=== PATIENT | female | born 1980 | race Caucasian/White ===

== ENCOUNTER 2020-05-12 12:50 | Emergency (ER) | payer MEDICAID, SELFPAY ==
--- NOTE | ~2020-05-12 | XR_ITS ---
EXAMINATION: XR FOOT, LEFT CLINICAL INFORMATION: Pain COMPARISON: None TECHNIQUE: AP, lateral, and oblique views of the left foot. FINDINGS: No fracture or malalignment. Joint spaces are maintained. Mild dorsal soft tissue swelling at the region of the metatarsophalangeal joints. No underlying osseous abnormality. No ankle joint effusion. XR/XR foot LT min 3V IMPRESSION: Mild dorsal soft tissue swelling at the level of the tarsometatarsal articulations. No associated osseous abnormality.
[2020-05-12 12:58] VITALS: BP 130/87; PULSE 80; RESP 18; TEMP 37.2; O2SAT 98; BMI 30.7
--- NOTE | 2020-05-12 14:16 | ED.LOWEXIN ---
HPI - Extremity Injury (Lower) General Chief Complaint: Extremity Problem Stated Complaint: LUMP ON R FOOT Time Seen by Provider: 05/12/20 13:22 Source: patient Mode of arrival: ambulatory Limitations: no limitations History of Present Illness HPI Narrative: Pain to the dorsum of the right foot on and off for the past 2 months onset after wearing work boots with stiff top. States she will wear snow shoes and this will make it worse. States feels like the dorsum of the foot feels slightly swollen. MD complaint: foot injury Onset (ago): month(s) Injury: Right: foot Place: home Severity: mild Relieving factors: immobilization Exacerbating factors: palpation and other (Worse when she wears no bleeds) Other symptoms: none Related Data Previous Rx's Medication Instructions Recorded ibuprofen 800 mg PO Q8H PRN #30 tab 05/12/20 Allergies Allergy/AdvReac Type Severity Reaction Status Date / Time penicillin V Allergy Unknown Verified 04/25/19 00:00 varicella virus vaccine live Allergy Unknown ITCHING,FABIAN Unverified 11/23/19 19:08 [VARICELLA VIRUS VACCINE SEA,HEADACH LIVE] E Review of Systems Review of Systems: Constitutional: No Weight loss, No Fever, No Chills, No Night Sweats, No Fatigue, No Malaise ENT/Mouth: No Hearing loss, No Ear Pain, No Nasal Congestion, No Sinus Pain, No Hoarseness, No sore throat, No Rhinorrhea, No Swallowing Difficulty Eyes: Negative Cardiovascular: Negative Respiratory: Negative Gastrointestinal: Negative Genitourinary: Negative Musculoskeletal: No joint pain, No Myalgias, No Joint Swelling , as are per HPI Skin: No Skin Lesions, No rash Neuro: No Weakness, No Numbness, No Paresthesias, No Loss of Consciousness, No Dizziness, No Headache Psych: Negative Heme/Lymph/Endocrine: Negative Yes all other systems are reviewed and are negative [facility] Past Medical History Medical History Anxiety Asthma Social History Social History Advance Directives: No Advance Directives Information Provided: No Physical Exam Vital Signs: Vital Signs: Last Vital Signs Temp 99.0 F 05/12/20 12:58 Pulse 80 05/12/20 12:58 Resp 18 05/12/20 12:58 BP 130/87 05/12/20 12:58 Pulse Ox 98 05/12/20 12:58 Body Mass Index 30.7 Reviewed Const: General: healthy appearing, comfortable and no acute distress Resp: Auscultation: clear to auscultation bilaterally Cardio: Rhythm: regular rhythm Heart sounds: S1 normal heart sound present and S2 normal heart sound present Skin: General skin exam: no rashes or lesions noted Extrem: Ankle/foot/toe images: 1. Area of pain Course Course Course Narrative: Pain at the proximal aspect of the flexor tendon and dorsum of the foot likely friction related. X-ray with the acute osseous injury. Exam without suggestion of infectious pathology. Jon wrap, NSAIDs and footwear modification and follow-up with orthopedics. Discharge Plan Discharge Clinical Impression: Foot tendinitis Patient Disposition: Home, Self-Care Instructions: Tendinitis (ED) Additional Instructions: Cool compresses Ice, elevate Jon wrap for comfort Nonsteroidal anti-inflammatory (ibuprofen) as prescribed Supportive footwear as discussed Prescriptions: New ibuprofen 800 mg tablet 800 mg PO Q8H PRN (Reason: pain) Qty: 30 RF: 0 Referrals: Jadiel Blake MD [Primary Care Provider] - 1 week Interventions: ED Discharge Assessment Last Done: 05/12/20 14:33 Discharge Date/Time: 05/12/20 14:33
== END 2020-05-12 14:33 | disposition home or self-care (01) ==
PROVIDERS: Emergency Provider Emergency Medicine; PCP Internal Medicine Geriatric Medicine
DX: M77.51 Other enthesopathy of right foot and ankle (principal); Z79.899 Other long term (current) drug therapy
CPT/HCPCS: 73630; 99283

== ENCOUNTER 2020-06-24 14:39 | Emergency (ER) | payer MEDICAID, SELFPAY ==
[2020-06-24 15:09] VITALS: BP 151/93; PULSE 80; RESP 17; TEMP 36.6; O2SAT 98; BMI 29.9
--- NOTE | 2020-06-24 15:46 | ED.DENTAL ---
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 Patient tells me she has severe anxiety with dentist as well as procedures. No fevers or chills Related Data Previous Rx's Medication Instructions Recorded ibuprofen 800 mg PO Q8H PRN #30 tab 05/12/20 clindamycin HCl 150 mg PO QID 7 Days #28 cap 06/24/20 ibuprofen 800 mg PO Q8H PRN #20 tab 06/24/20 oxycodone 5 mg PO Q6H PRN #10 tab 06/24/20 Allergies Allergy/AdvReac Type Severity Reaction Status Date / Time penicillin V Allergy Unknown Unknown Verified 06/24/20 15:53 varicella virus vaccine live Allergy Unknown ITCHING,FABIAN Verified 06/24/20 15:53 [VARICELLA VIRUS VACCINE SEA,HEADACH LIVE] E Review of Systems Review of Systems: Yes all other systems are reviewed and are negative Constitutional: Constitutional: Reports no additional constitutional complaints, Denies body ache(s), Denies chills, Denies fever(s), Denies headache(s) and Denies weakness Eyes: Eyes: Reports no additional eye complaints and Denies change in vision ENT: Reports system reviewed and no additional complaints, except as documented, Denies dizziness, Reports facial pain, Denies headache(s), Denies nasal congestion, Denies nasal discharge and Denies neck pain Comments: Dental pain Cardiovascular: Cardiovascular: Reports no additional cardiovascular complaints, Denies chest pain, Denies leg edema and Denies dyspnea Respiratory: Respiratory: Reports no additional respiratory complaints, Denies cough and Denies dyspnea Gastrointestinal: Gastrointestinal: Reports no additional gastrointestinal complaints, Denies abdominal pain, Denies diarrhea, Denies nausea and Denies vomiting Genitourinary: Genitourinary: Reports no additional female genitourinary complaints and Denies urinary incontinence Musculoskeletal: Musculoskeletal: Reports no additional musculoskeletal complaints, Denies back pain, Denies arthralgias, Denies joint swelling, Denies neck pain, Denies numbness and Denies tingling Integumentary/Breasts: Skin/Breast: Reports system reviewed and no additional complaints, except as docu and Denies rash Neurologic: Reports system reviewed and no additional complaints, except as documented, Denies Abnormal speech present, Denies dizziness, Denies headache(s), Denies numbness, Denies tingling and Denies weakness PMFSH Past Medical History Attestation statement: The following information was validated with the patient. Source: old records reviewed and nursing notes reviewed Medical History Anxiety Asthma Social History Social History Advance Directives: No Advance Directives Information Provided: Yes Physical Exam Vital Signs: Vital Signs: Last Vital Signs Temp 98 F 06/24/20 15:09 Pulse 80 06/24/20 15:09 Resp 17 06/24/20 15:09 BP 151/93 H 06/24/20 15:09 Pulse Ox 98 06/24/20 15:09 Body Mass Index 29.9 Const: General: cooperative, healthy appearing, comfortable and no acute distress Orientation/consciousness: patient oriented x3 Limitations: no limitations HENMT: Other: No trismus Head: Yes normal to inspection Ears: hearing grossly normal bilaterally General nose exam: Normal external nose present Face and sinus: Yes normal facial exam Face images: 1. Swelling. No erythema or warmth Mouth: Normal oral and palatal mucosa present Teeth image: 1. Extensive caries. Erythema swelling and fluctuance at the gum line noted Throat: Yes posterior oropharynx normal Eyes: General: appearance normal, both eyes and all related structures Pupils: Equal, round and reactive pupils present Neck: Neck: Yes normal visual inspection Chest: Chest palpation & inspection: normal inspection of the chest Resp: Effort & Inspection: normal respiratory effort Auscultation: clear to auscultation bilaterally Cardio: Rate: regular rate Rhythm: regular rhythm Peripheral pulses: Peripheral pulses 2+ throughout GI: Inspection: Yes normal to inspection Palpation (GI): Soft to palpation and nontender Auscultation: normal bowel sounds Back/Spine/Pelvis: Thoracic/Lumbar Spine: thoracic and lumbar spine normal to inspection Skin: General skin exam: no rashes or lesions noted Neuro: General: patient oriented x3, no focal motor deficits and normal sensation to monofilament Cranial nerves: Yes Equal, round and reactive pupils present Cognition (Neuro): normal cognition Speech: No Abnormal speech present Gait exam (Neuro): Normal gait present Motor exam (neuro): 5/5 motor strength present throughout Extrem: General: Yes normal to inspection Course Course Course Narrative: 40-year-old female here with left dental pain and facial swelling. No fevers, chills or trismus. Has extensive dental caries with local abscess on exam. Will need I and D. due to severe anxiety will give dose of Ativan. 1814-see procedure note. Patient tolerated well. Will discharge with course of antibiotics and analgesia. Recommended follow-up with dentist. Reviewed worrisome signs and symptoms such as difficulty opening the mouth, increasing swelling. Comfortable discharge home. Procedures Abscess I/D Site: other (Dental) Side (if applicable): left Sedation/analgesia: other (Ativan 2 mg p.o.) Local Anesthetic: lidocaine 2% Amount of anesthesia used (mL): 1 Technique: needle aspiration and incised with blade Sent for culture/gram staining?: No Irrigation: No Packing used?: none Discharge Plan Discharge Clinical Impression: Dental abscess Patient Disposition: Home, Self-Care Instructions: Dental Abscess (ED) Additional Instructions: Motrin or Tylenol for pain Follow-up with dentist Salt water gargle Prescriptions: New clindamycin HCl 150 mg capsule 150 mg PO QID 7 Days Qty: 28 RF: 0 ibuprofen 800 mg tablet 800 mg PO Q8H PRN (Reason: pain) Qty: 20 RF: 0 oxycodone 5 mg tablet 5 mg PO Q6H PRN (Reason: pain) Qty: 10 RF: 0 No Action ibuprofen 800 mg tablet 800 mg PO Q8H PRN (Reason: pain) Qty: 30 RF: 0 Referrals: Jadiel Blake MD [Primary Care Provider] - 2 days Stand Alone Forms: Work/School Release Interventions: ED Discharge Assessment Last Done: 06/24/20 17:40 Discharge Date/Time: 06/24/20 17:41 Print Language: Lao
[2020-06-24] MEDS: LORazepam 1 MG TABLET 2 MG PO (16:04)
[2020-06-24] MEDS: Lidocaine HCl 2 % MPF 5 ML VIAL SUBCUT (16:05)
== END 2020-06-24 17:41 | disposition home or self-care (01) ==
PROVIDERS: Emergency Provider Emergency Medicine; PCP Internal Medicine Geriatric Medicine
DX: K04.7 Periapical abscess without sinus (principal); K08.89 Other specified disorders of teeth and supporting structures; F41.9 Anxiety disorder, unspecified
CPT/HCPCS: 41800; 99284

== ENCOUNTER 2020-07-16 16:22 | Outpatient (REF) | payer MEDICAID, SELFPAY ==
--- NOTE | ~2020-07-16 | US_ITS ---
EXAMINATION: US EXTREMITY NONVASCULAR, LEFT CLINICAL INFORMATION: Mass dorsal left foot. COMPARISON: None TECHNIQUE: Cid-scale and color imaging of the soft tissues of the left foot using a linear transducer. FINDINGS: Mass corresponds to a 2.3 x 1.3 x 0.7 cm simple-appearing cyst. This may represent a ganglion. US/US extremity nonvascular IMPRESSION: Palpable abnormality corresponds to a 2.3 x 0.7 x 1.3 cm simple cyst. This probably represents a ganglion.
== END 2020-07-16 16:23 | disposition home or self-care (01) ==
LOC: HO.US 16:22
PROVIDERS: Visit Provider Nurse Practitioner Primary Care
DX: R22.9 Localized swelling, mass and lump, unspecified (principal)
CPT/HCPCS: 76882

== ENCOUNTER 2020-08-09 21:37 | Emergency (ER) | payer MEDICAID, SELFPAY ==
--- NOTE | ~2020-08-09 | CT_ITS ---
EXAMINATION: CT SOFT TISSUE NECK WITH CONTRAST CLINICAL INFORMATION: Facial swelling COMPARISON: None TECHNIQUE: Following the intravenous administration of 60 mL of Omnipaque 350 intravenous contrast, helical imaging was performed in the axial plane with generation of coronal and sagittal reformatted images. This CT examination was performed using dose optimization techniques as appropriate, variously including the following: *Automated exposure control *Adjustment of mA and/or kV according to patient size (this includes techniques or standardized protocols for targeted exams where dose is matched to indication/reason for exam; i.e. extremities or head) *Use of iterative reconstruction technique DLP: 560 mGy-cm FINDINGS: There is left-sided facial swelling lateral to the maxilla. There are adjacent periapical lucencies of the first maxillary molar and adjacent premolar, suspicious for odontogenic abscess with cortical erosion laterally. Edema lateral to the maxilla extends inferiorly lateral to the left mandible, and there is a thin region of fluid attenuation suggesting on image 140/356 measuring approximately 1.9 x 0.3 cm which is concerning for developing small abscess collection. Few mildly prominent left submandibular lymph nodes are favored to be reactive in this setting. The parotid glands are homogeneous in attenuation. The submandibular glands are normal. The laryngeal structures are normal. The parapharyngeal fat is preserved. The carotid sheath vasculature opacify normally. No retropharyngeal fluid collection is seen. Subcentimeter right thyroid lobe nodule is noted. The superior mediastinum is unremarkable. The lung apices are clear. There is mucosal thickening of the maxillary sinuses inferiorly. The mastoid air cells are well-aerated. The temporomandibular joints are normal. No osseous abnormalities are seen. The imaged portions of the brain parenchyma are unremarkable. CT/CT soft tissue neck w con IMPRESSION: Left-sided facial swelling lateral to the maxilla, with adjacent periapical lucencies of the first maxillary molar and adjacent premolar suspicious for odontogenic abscess with cortical erosion laterally. Edema extends inferiorly lateral to the left mandible, and there is a thin region of fluid attenuation measuring approximately 1.9 x 0.3 cm concerning for developing small abscess collection.
[2020-08-09 22:59] VITALS: BP 138/87; PULSE 92; RESP 18; TEMP 36.7; O2SAT 100; BMI 30.7
[2020-08-10] MEDS: Ketorolac Tromethamine 15 MG/ML VIAL IVPUSH (01:39)
[2020-08-10] MEDS: Clindamycin Phosphate/D5W 600 MG/50 ML PIGGYBACK 100 MG IV (01:40)
--- NOTE | 2020-08-10 01:42 | ED.GENADULT ---
HPI - General Adult General Chief complaint: Dental/Oral <CHIKIS Hutchinson - Last Filed: 08/10/20 02:57> Stated complaint: facial swelling <CHIKIS Hutchinson - Last Filed: 08/10/20 02:57> Time Seen by Provider: 08/10/20 00:54 <CHIKIS Hutchinson - Last Filed: 08/10/20 02:57> Source: patient, RN notes reviewed and old records reviewed <CHIKIS Hutchinson - Last Filed: 08/10/20 02:57> Mode of arrival: ambulatory <CHIKIS Hutchinson - Last Filed: 08/10/20 02:57> Limitations: no limitations <CHIKIS Hutchinson - Last Filed: 08/10/20 02:57> History of Present Illness HPI narrative: 32-year-old female here today complaints of left facial swelling. Patient was treated for the same in the ER on June 1920. Patient had dental abscess drained and was sent home with ibuprofen and clindamycin for 7 days. She was supposed to follow-up with her dentist. Today she presents with extensive left facial swelling redness and warmth. Patient did not take all of her antibiotics. She only took some of them to biotic 6. This morning her swelling was getting worse and she took couple of the antibiotics that was left over. Patient has pretty extensive dental caries in upper and lower molars on bilateral sides. More so on the left upper side. The swelling is so extensive that I am unable to visualize if there is any abscess. Patient denies any fever or chills periods denies any dysphagia, odynophagia. Patient denies any headaches or dizziness, denies any vision changes <CHIKIS Hutchinson - Last Filed: 08/10/20 02:57> Related Data Home medications: Previous Rx's Medication Instructions Recorded ibuprofen 800 mg PO Q8H PRN #30 tab 05/12/20 clindamycin HCl 150 mg PO QID 7 Days #28 cap 06/24/20 ibuprofen 800 mg PO Q8H PRN #20 tab 06/24/20 oxycodone 5 mg PO Q6H PRN #10 tab 06/24/20 clindamycin HCl 300 mg PO Q6H 7 Days #28 cap 08/10/20 <Melissa Newlorrie EVENT ATTENDANT-BC - Last Filed: 08/10/20 02:57> Allergies/adverse reactions: Allergies Allergy/AdvReac Type Severity Reaction Status Date / Time penicillin V Allergy Unknown Unknown Verified 06/24/20 15:53 varicella virus vaccine live Allergy Unknown ITCHING,FABIAN Verified 06/24/20 15:53 [VARICELLA VIRUS VACCINE SEA,HEADACH LIVE] E <Melissa Aroldo Pope EVENT ATTENDANT-BC - Last Filed: 08/10/20 02:57> Review of Systems Constitutional: Constitutional: Reports as per HPI <Melissa Newlorrie EVENT ATTENDANT- - Last Filed: 08/10/20 02:57> Eyes: Eyes: Denies blurry vision, Denies change in vision and Denies diplopia <Melissa Aroldo Toshia, EVENT ATTENDANT- - Last Filed: 08/10/20 02:57> ENT: Reports Normal hearing present, Denies bleeding gums, Denies change in voice, Reports dental pain, Denies dysphagia, Denies vertigo, Denies dizziness, Denies hoarseness, Denies nasal congestion, Denies odynophagia and Reports sore throat <Melissa Aroldo Newlorrie EVENT ATTENDANT- - Last Filed: 08/10/20 02:57> Cardiovascular: Cardiovascular: Reports no additional cardiovascular complaints, Denies chest pain, Denies irregular heart rhythm, Denies leg edema, Denies lightheadedness and Denies dyspnea <Melissa Aroldo Pope EVENT ATTENDANT- - Last Filed: 08/10/20 02:57> Respiratory: Respiratory: Reports no additional respiratory complaints and Denies dyspnea <Melissa Aroldo Toshia, EVENT ATTENDANT-BC - Last Filed: 08/10/20 02:57> Gastrointestinal: Gastrointestinal: Reports no additional gastrointestinal complaints, Denies dysphagia and Denies odynophagia <Melissa Aroldo Pope EVENT ATTENDANT- - Last Filed: 08/10/20 02:57> Musculoskeletal: Musculoskeletal: Reports no additional musculoskeletal complaints <Melissa Aroldo Pope EVENT ATTENDANT-BC - Last Filed: 08/10/20 02:57> Neurologic: Reports system reviewed and no additional complaints, except as documented, Reports Normal hearing present, Denies vertigo and Denies dizziness <CHIKIS Hutchinson - Last Filed: 08/10/20 02:57> Psychiatric: Psychiatric: Reports no additional psychiatric complaints <NAVIN HutchinsonBC - Last Filed: 08/10/20 02:57> PMFSH Past Medical History Medical History: Medical History Anxiety Asthma <CHIKIS Hutchinson - Last Filed: 08/10/20 02:57> Social History Social History: Social History Advance Directives: No Advance Directives Information Provided: No Patient : No <CHIKIS Hutchinson - Last Filed: 08/10/20 02:57> Physical Exam Vital Signs: Vital Signs: Last Vital Signs Temp 98.4 F 08/10/20 01:44 Pulse 83 08/10/20 04:00 Resp 16 08/10/20 04:00 BP 110/65 08/10/20 04:00 Pulse Ox 97 08/10/20 04:00 Body Mass Index 30.7 <CHIKIS Hutchinson - Last Filed: 08/10/20 02:57> Vital Signs: Last Vital Signs Temp 98.4 F 08/10/20 01:44 Pulse 83 08/10/20 04:00 Resp 08/10/20 04:00 BP 110/65 08/10/20 04:00 Pulse Ox 97 08/10/20 04:00 Body Mass Index 30.7 <Kaycee Zacarias MD - Last Filed: 08/10/20 05:16> Const: General: healthy appearing, no acute distress and well developed <CHIKIS Hutchinson - Last Filed: 08/10/20 02:57> Nutritional Appearance: well nourished <CHIKIS Hutchinson - Last Filed: 08/10/20 02:57> Orientation/consciousness: patient oriented x3 <CHIKIS Hutchinson - Last Filed: 08/10/20 02:57> HENMT: Head: Yes normal to inspection, Yes normocephalic and Yes atraumatic <Melissa Pope EVENT ATTENDANT-BC - Last Filed: 08/10/20 02:57> General nose exam: Normal external nose present <Melissa D Toshia, EVENT ATTENDANT-BC - Last Filed: 08/10/20 02:57> Face and sinus: Yes erythema (Left facial) and Yes edema (Left facial) <Melissa Aroldo Newo, EVENT ATTENDANT-BC - Last Filed: 08/10/20 02:57> Neck: Neck: Yes normal visual inspection, Yes full ROM and Yes trachea midline <Melissa Aroldo Newo, EVENT ATTENDANT-BC - Last Filed: 08/10/20 02:57> Thyroid: Thyroid normal <Melissa Aroldo Newo, EVENT ATTENDANT-BC - Last Filed: 08/10/20 02:57> Resp: Auscultation: clear to auscultation bilaterally <Melissa Aroldo Newo, EVENT ATTENDANT-BC - Last Filed: 08/10/20 02:57> Cardio: Rate: regular rate <Melissa Aroldo Pope, EVENT ATTENDANT-BC - Last Filed: 08/10/20 02:57> Rhythm: regular rhythm <Melissa Aroldo Newo, EVENT ATTENDANT-BC - Last Filed: 08/10/20 02:57> GI: Inspection: Yes normal to inspection and No distended <Melissa Aroldo Newo, EVENT ATTENDANT-BC - Last Filed: 08/10/20 02:57> Palpation (GI): No hepatosplenomegaly present <Melissa D Toshia, EVENT ATTENDANT-BC - Last Filed: 08/10/20 02:57> Auscultation: normal bowel sounds <Melissa D Toshia, EVENT ATTENDANT-BC - Last Filed: 08/10/20 02:57> Skin: General skin exam: elasticity normal, turgor normal and dry skin <Melissa D Toshia, EVENT ATTENDANT-BC - Last Filed: 08/10/20 02:57> Neuro: General: patient oriented x3 <Melissa D Toshia, EVENT ATTENDANT-BC - Last Filed: 08/10/20 02:57> Cranial nerves: Yes Normal hearing present <Melissa D Toshia, EVENT ATTENDANT-BC - Last Filed: 08/10/20 02:57> Course Course Course Narrative: 40-year-old female is here today for left facial pain and swelling. Patient was treated for dental caries and abscesses on June 24 was sent home on antibiotics. However she only took couple days worth of antibiotics and then she stopped this morning she started with facial swelling that increased rapidly patient took couple of the antibiotics today however she stops the course after only couple days of treatment. I will send blood cultures start her on Clinamycin IV will do CT scan of the neck. <KAROLINA Hutchinson-BC - Last Filed: 08/10/20 02:57> CT scan reviewed and patient re-evaluated. Patient states she feels somewhat better and has been resting comfortably. She understands the importance of continuing to take the antibiotics as prescribed as well as following up with the dentist on Wednesday morning. She was provided with strict return precautions. <Kaycee Zacarias MD - Last Filed: 08/10/20 05:16> Reevaluation(s) Reevaluation #1: WBCs 11.9, awaiting to go to CT scan report given to Dr. Fisher <KAROLINA Hutchinson-BC - Last Filed: 08/10/20 02:57> Medical Decision Making Lab Data Result diagrams: : 08/10/20 01:38 08/10/20 01:38 <KAROLINA Hutchinson-BC - Last Filed: 08/10/20 02:57> Labs: Lab Results 08/10/20 08/10/20 Range/Units 01:38 01:38 WBC 11.9 H (4.8-10.8) X10*3/uL RBC 4.99 (4.20-5.50) X10*6/uL Hgb 12.0 (12.0-16.0) g/dl Hct 36.6 L (37-47) % MCV 73.3 L (80-98) fL MCH 24.0 L (27.0-33.0) pg MCHC 32.8 (31.0-35.0) g/dl RDW 22.5 H (11.0-16.0) % Plt Count 293 (160-400) X10*3/uL MPV 10.6 (9.4-12.3) fL Immature Gran % (Auto) 0.3 (0.0-0.4) % Neut % (Auto) 72.2 (45-73) % Lymph % (Auto) 17.5 L (20-40) % [place] % (Auto) 8.2 (2-11) % Eos % (Auto) 1.5 (0-4) % Baso % (Auto) 0.3 (0-2) % Lymph # (Auto) 2.1 (1.2-4.9) X10*3/uL [place] # (Auto) 1.0 (0.1-1.2) X10*3/uL Eos # (Auto) 0.2 (0.0-0.4) X10*3/uL Baso # (Auto) 0.0 (0.0-0.2) X10*3/uL Abs Immat Gran (auto) 0.03 (0.00-0.03) X10*3/uL Absolute Neuts (auto) 8.6 H (2.0-8.3) X10*3/uL Absolute Nucleated RBC 0.000 (0.0-0.012) X10*3/uL Nucleated RBC % (auto) 0.0 (0.0-0.2) /100WBC Sodium 138 (135-145) mmol/L Potassium 3.7 (3.3-5.1) mmol/L Chloride 103 (96-108) mmol/L Carbon Dioxide 23 (22-29) mmol/L Anion Gap 16 (12-20) BUN 13 (9-16) mg/dL Creatinine 0.82 (0.5-1.4) mg/dL Estim Creat Clear Calc 98.8 Estimated GFR > 60 Random Glucose 109 (60-115) mg/dL Calcium 9.2 (8.4-10.2) mg/dL <BRENDA HutchinsonP- - Last Filed: 08/10/20 02:57> Lab Results 08/10/20 08/10/20 Range/Units 01:38 01:38 WBC 11.9 H (4.8-10.8) X10*3/uL RBC 4.99 (4.20-5.50) X10*6/uL Hgb 12.0 (12.0-16.0) g/dl Hct 36.6 L (37-47) % MCV 73.3 L (80-98) fL MCH 24.0 L (27.0-33.0) pg MCHC 32.8 (31.0-35.0) g/dl RDW 22.5 H (11.0-16.0) % Plt Count 293 (160-400) X10*3/uL MPV 10.6 (9.4-12.3) fL Immature Gran % (Auto) 0.3 (0.0-0.4) % Neut % (Auto) 72.2 (45-73) % Lymph % (Auto) 17.5 L (20-40) % [place] % (Auto) 8.2 (2-11) % Eos % (Auto) 1.5 (0-4) % Baso % (Auto) 0.3 (0-2) % Lymph # (Auto) 2.1 (1.2-4.9) X10*3/uL [place] # (Auto) 1.0 (0.1-1.2) X10*3/uL Eos # (Auto) 0.2 (0.0-0.4) X10*3/uL Baso # (Auto) 0.0 (0.0-0.2) X10*3/uL Abs Immat Gran (auto) 0.03 (0.00-0.03) X10*3/uL Absolute Neuts (auto) 8.6 H (2.0-8.3) X10*3/uL Absolute Nucleated RBC 0.000 (0.0-0.012) X10*3/uL Nucleated RBC % (auto) 0.0 (0.0-0.2) /100WBC Sodium 138 (135-145) mmol/L Potassium 3.7 (3.3-5.1) mmol/L Chloride 103 (96-108) mmol/L Carbon Dioxide 23 (22-29) mmol/L Anion Gap 16 (12-20) BUN 13 (9-16) mg/dL Creatinine 0.82 (0.5-1.4) mg/dL Estim Creat Clear Calc 98.8 Estimated GFR > 60 Random Glucose 109 (60-115) mg/dL Calcium 9.2 (8.4-10.2) mg/dL <Kaycee Zacarias MD - Last Filed: 08/10/20 05:16> Discharge Plan Discharge Clinical Impression: Abscess, dental <CHIKIS Hutchinson - Last Filed: 08/10/20 02:57> Patient Disposition: Home, Self-Care <CHIKIS Hutchinson - Last Filed: 08/10/20 02:57> Instructions: Dental Abscess (ED) <CHIKIS Hutchinson - Last Filed: 08/10/20 02:57> Additional Instructions: 1. Recomiende el uso de Tylenol / ibuprofeno de venta raciel seg?n sea necesario para controlar el dolor. 2. Utilice compresas tibias y h?medas en la mejilla, de thomas a cuatro veces al d?a. 3. Seguimiento con el dentista el lunes por la ma?jonathan para el tratamiento definitivo. Regrese a la moira de emergencias por cualquier empeoramiento alejandro de kathe s?ntomas. <CHIKIS Hutchinson - Last Filed: 08/10/20 02:57> Prescriptions: New clindamycin HCl 300 mg capsule 300 mg PO Q6H 7 Days Qty: 28 RF: 0 No Action ibuprofen 800 mg tablet 800 mg PO Q8H PRN (Reason: pain) Qty: 30 RF: 0 clindamycin HCl 150 mg capsule 150 mg PO QID 7 Days Qty: 28 RF: 0 ibuprofen 800 mg tablet 800 mg PO Q8H PRN (Reason: pain) Qty: 20 RF: 0 oxycodone 5 mg tablet 5 mg PO Q6H PRN (Reason: pain) Qty: 10 RF: 0 <CHIKIS Hutchinson - Last Filed: 08/10/20 02:57> Referrals: Lou,MD Jadiel [Primary Care Provider] - 2 days <CHIKIS Hutchinson - Last Filed: 08/10/20 02:57> Print Language: Serbian <CHIKIS Hutchinson - Last Filed: 08/10/20 02:57>
[2020-08-10 01:44] VITALS: BP 127/77; PULSE 87; RESP 17; TEMP 36.9; O2SAT 96
[2020-08-10 01:51] LABS: MANUAL DIFF FLAG NO
[2020-08-10 01:53] LABS: Basophils Percent Auto 0.3 % (0-2); Eosinophils Absolute Auto 0.2 X10*3/uL (0.0-0.4); Eosinophils Percent Auto 1.5 % (0-4); Hematocrit 36.6 % (37-47); Imm Gran Abs Auto 0.03 X10*3/uL (0.00-0.03); Imm Gran Pct Auto 0.3 % (0.0-0.4); Lymphocytes Absolute Auto 2.1 X10*3/uL (1.2-4.9); Lymphocytes Percent Auto 17.5 % (20-40); Mean Corpuscular HGB Conc 32.8 g/dl (31.0-35.0); Mean Corpuscular Volume 73.3 fL (80-98); Mean Platelet Volume 10.6 fL (9.4-12.3); Monocytes Percent Auto 8.2 % (2-11); Neutrophils Absolute Auto 8.6 X10*3/uL (2.0-8.3); Neutrophils Percent Auto 72.2 % (45-73); Platelet Count 293 X10*3/uL (160-400); Red Blood Count 4.99 X10*6/uL (4.20-5.50); Red Cell Distribution Width 22.5 % (11.0-16.0); White Blood Count 11.9 X10*3/uL (4.8-10.8)
[2020-08-10 02:13] LABS: Anion Gap 16 (12-20); Blood Urea Nitrogen 13 mg/dL (9-16); Calcium 9.2 mg/dL (8.4-10.2); Carbon Dioxide 23 mmol/L (22-29); Chloride 103 mmol/L (96-108); Creatinine Clr Calc Pharmacy 98.8; Estimated Glomerular Filt Rate > 60; Glucose Random 109 mg/dL (60-115); Potassium 3.7 mmol/L (3.3-5.1); Sodium 138 mmol/L (135-145)
[2020-08-10] MEDS: iohexoL 350 MG/ML 100 ML INFUS..BTL 60 ML IV (02:53)
[2020-08-10 04:00] VITALS: BP 110/65; PULSE 83; RESP 16; O2SAT 97
== END 2020-08-10 05:43 | disposition home or self-care (01) ==
PROVIDERS: Nurse Practitioner Family; Emergency Provider Emergency Medicine; PCP Internal Medicine Geriatric Medicine
DX: K04.7 Periapical abscess without sinus (principal); Z79.899 Other long term (current) drug therapy
CPT/HCPCS: 36415; 70491; 80048; 85025; 87040; 96365; 96375; 99284; J1885; Q9967

== ENCOUNTER 2021-02-18 12:25 | Emergency (ER) | payer MEDICAID, SELFPAY ==
[2021-02-18 13:10] VITALS: BP 135/83; PULSE 80; RESP 18; TEMP 36.2; O2SAT 100; BMI 32.4
== END 2021-02-18 18:53 | disposition left against medical advice (07) ==
LOC: HO.ED 18:50
PROVIDERS: Emergency Provider Emergency Medicine; PCP Internal Medicine Geriatric Medicine
DX: N64.4 Mastodynia (principal)
CPT/HCPCS: 99282

== ENCOUNTER 2021-03-14 12:59 | Outpatient (REF) | payer MEDICAID, SELFPAY ==
--- NOTE | ~2021-03-14 | US_ITS ---
EXAMINATION: US DIAGNOSTIC ULTRASOUND BREAST, RIGHT CLINICAL INFORMATION: Right breast pain. COMPARISON: Mammography of same day. TECHNIQUE: Ultrasound of the breast is performed with real-time norris scale imaging and color Doppler. FINDINGS: There is no focal suspicious finding. There is no solid mass, architectural abnormality, duct ectasia, or edema in the soft tissue planes. Results are discussed with the patient at time of visit. US/US breast RT limited IMPRESSION: No specific ultrasound abnormality to suggest malignancy of the right breast. ASSESSMENT: BI-RADS 1: Negative RECOMMENDATION: Routine annual mammography screening. This patient's information was entered into a reminder system with a target due date for their next mammogram.
--- NOTE | ~2021-03-14 | MM_ITS ---
EXAMINATION: MM DIAGNOSTIC DIGITAL BREAST TOMOSYNTHESIS, BILATERAL CLINICAL INFORMATION: Bilateral breast pain. The lifetime risk of breast cancer based on the Tyrer-Cuzick Model is 7.9%. COMPARISON: Mammography: 09/01/2019 and 08/26/2018. TECHNIQUE: Digital breast tomosynthesis is performed in both the craniocaudal and mediolateral oblique views along with computer-aided detection (CAD). Synthesized 2D images are generated from the tomosynthesis. Targeted bilateral breast ultrasound was also performed and is reported separately. FINDINGS: The breasts are heterogeneously dense, which may obscure small masses (ACR BI-RADS breast composition Category c). There are no significant masses, abnormal calcifications, or other abnormalities. Bilateral targeted breast ultrasound does not demonstrate any abnormal cystic or solid masses. No region of abnormal distal sound-shadowing is appreciated. No edematous change within the parenchyma is noted. Results are discussed with the patient at time of visit. MM/MM tomosynthesis diagnostic BI IMPRESSION: No specific mammographic or ultrasound findings to suggest malignancy. ASSESSMENT: BI-RADS 1: Negative RECOMMENDATION: Routine annual mammography screening. Clinical followup for any palpable abnormalities. This patient's information was entered into a reminder system with a target due date for their next mammogram.
--- NOTE | ~2021-03-14 | US_ITS ---
EXAMINATION: US DIAGNOSTIC ULTRASOUND BREAST, LEFT CLINICAL INFORMATION: Left breast pain. COMPARISON: Mammography of same day. TECHNIQUE: Ultrasound of the breast is performed with real-time norris scale imaging and color Doppler. FINDINGS: There is no focal suspicious finding. There is no solid mass, architectural abnormality, duct ectasia, or edema in the soft tissue planes. Results are discussed with the patient at time of visit. US/US breast LT limited IMPRESSION: No specific left breast ultrasound findings to suggest malignancy. ASSESSMENT: BI-RADS 1: Negative RECOMMENDATION: Routine annual mammography screening. This patient's information was entered into a reminder system with a target due date for their next mammogram.
== END 2021-03-14 13:00 | disposition home or self-care (01) ==
LOC: HO.MAMMO 12:59
PROVIDERS: PCP Internal Medicine Geriatric Medicine; Visit Provider Internal Medicine Geriatric Medicine
DX: N64.4 Mastodynia (principal)
CPT/HCPCS: 76642; 77062; 77066

== ENCOUNTER 2021-08-10 17:26 | Emergency (ER) | payer MEDICAID, SELFPAY ==
--- NOTE | ~2021-08-10 | XR_ITS ---
EXAMINATION: XR SHOULDER, RIGHT CLINICAL INFORMATION: Shoulder pain COMPARISON: None TECHNIQUE: Three views of the right shoulder. FINDINGS: The bones and soft tissues are normal. No fracture. Glenohumeral and acromioclavicular alignment is anatomic with normal joint space. No abnormal soft tissue calcifications. XR/XR shoulder RT min 2V IMPRESSION: Normal right shoulder.
[2021-08-10 17:42] VITALS: BP 127/78; PULSE 86; RESP 20; TEMP 36.6; O2SAT 98; BMI 32.4
--- NOTE | 2021-08-10 22:47 | ED.EXTPRO ---
HPI - Extremity Problem General Chief complaint: Extremity Problem Stated complaint: shoulder pain Time Seen by Provider: 08/10/21 22:47 History of Present Illness HPI Narrative: Patient is 41-year-old female was driving a car subsequently had pain in the right shoulder area. The pain is worse with movement of the right shoulder. There is no pain on movement of the left shoulder. There is no chest pain. There is no diaphoresis. There is no fever no chills. No nausea no vomiting. No abdominal pain no diaphoresis. Not on blood thinners. Related Data Previous Rx's Medication Instructions Recorded ibuprofen 800 mg tablet 800 mg PO Q8H PRN #30 tab 05/12/20 clindamycin HCl 150 mg capsule 150 mg PO QID 7 Days #28 cap 06/24/20 ibuprofen 800 mg tablet 800 mg PO Q8H PRN #20 tab 06/24/20 oxycodone 5 mg tablet 5 mg PO Q6H PRN #10 tab 06/24/20 clindamycin HCl 300 mg capsule 300 mg PO Q6H 7 Days #28 cap 08/10/20 ibuprofen 400 mg tablet 400 mg PO Q6H PRN #20 tab 08/10/21 Allergies Allergy/AdvReac Type Severity Reaction Status Date / Time penicillin V Allergy Unknown Unknown Verified 06/24/20 15:53 varicella virus vaccine live Allergy Unknown ITCHING,FABIAN Verified 06/24/20 15:53 [VARICELLA VIRUS VACCINE SEA,HEADACH LIVE] E Review of Systems Review of Systems: Positive shoulder pain Yes all other systems are reviewed and are negative PMFSH Past Medical History Attestation statement: The following information was validated with the patient. Medical History Anxiety Asthma Social History Social History Advance Directives: No Advance Directives Information Provided: No Physical Exam Vital Signs: Vital Signs: Last Vital Signs Temp 97.8 F 08/10/21 17:42 Pulse 86 08/10/21 17:42 Resp 20 08/10/21 17:42 BP 127/78 08/10/21 17:42 Pulse Ox 98 08/10/21 17:42 BMI result Body Mass Index 32.4 Appearance: Alert. Oriented X3. No acute distress. Eyes: Pupils equal, round and reactive to light. ENT: Pharynx normal. Neck: Normal inspection. Neck supple. No lymph nodes noted. No crepitus CVS: Normal heart rate and rhythm. Pulses normal. Normal S1 and S2 Respiratory: No respiratory distress. Breath sounds normal. No Wheezing. No rales Abdomen: Soft and nontender. No rigidity. No distention. good BS x4 Skin: Skin warm and dry. Normal skin color. Normal skin turgor. Extremities: Pain on movement of the right shoulder. Abduction of the shoulder causes pain in the trapezius area. There is no limitation to range of motion. Range of motion at the elbow wrist fingers all intact. Good hand grasp. Pulse 2 + at radial. Sensation over the median radial ulnar nerve intact. Skin intact. No lesions. No pain movement of the left shoulder. Neuro: Oriented X 3. No motor deficit. No sensory deficit. Moving all extermities. No slurred speech MDM - Extremity (Nontraumatic) MDM Narrative Medical decision making narrative: Pain appears musculoskeletal. X-ray of the shoulder showed no fracture. Will discharge patient home on Motrin. Close follow-up on an outpatient basis. No cardiac risk factors no chest pain or shortness of breath pain is musculoskeletal will discharge patient Discharge Plan Discharge Clinical Impression: Shoulder sprain Patient Disposition: Home, Self-Care Instructions: Shoulder Sprain (ED) Prescriptions: New ibuprofen 400 mg tablet 400 mg PO Q6H PRN (Reason: pain) Qty: 20 0RF No Action ibuprofen 800 mg tablet 800 mg PO Q8H PRN (Reason: pain) Qty: 30 0RF clindamycin HCl 150 mg capsule 150 mg PO QID 7 Days Qty: 28 0RF ibuprofen 800 mg tablet 800 mg PO Q8H PRN (Reason: pain) Qty: 20 0RF oxycodone 5 mg tablet 5 mg PO Q6H PRN (Reason: pain) Qty: 10 0RF clindamycin HCl 300 mg capsule 300 mg PO Q6H 7 Days Qty: 28 0RF Referrals: Name,MD Jadiel [Primary Care Provider] -
== END 2021-08-10 23:11 | disposition home or self-care (01) ==
PROVIDERS: Emergency Provider Emergency Medicine Emergency Medical Services; PCP Internal Medicine Geriatric Medicine
DX: S43.401A Unspecified sprain of right shoulder joint, initial encounter (principal); X58.XXXA Exposure to other specified factors, initial encounter; Y93.89 Activity, other specified; Y92.810 Car as the place of occurrence of the external cause; Y99.9 Unspecified external cause status
CPT/HCPCS: 73030; 99283

== ENCOUNTER → 2021-11-28 15:17 | Outpatient (BNV) | payer MEDICAID, SELFPAY | PROVIDERS: PCP Internal Medicine Geriatric Medicine; Visit Provider Internal Medicine | DX: D50.9 Iron deficiency anemia, unspecified (principal) | CPT/HCPCS: 99204; 99213 ==

== ENCOUNTER 2021-12-08 13:27 | Outpatient (REF) | payer MEDICAID, SELFPAY | END 2021-12-08 13:28 | disposition home or self-care (01) | LOC: HO.MDS 13:27 | PROVIDERS: Visit Provider Internal Medicine | DX: D50.9 Iron deficiency anemia, unspecified (principal) | CPT/HCPCS: 96365; J1756 ==

== ENCOUNTER 2021-12-19 12:56 | Outpatient (REF) | payer MEDICAID, SELFPAY | END 2021-12-19 12:57 | disposition home or self-care (01) | LOC: HO.MDS 12:56 | PROVIDERS: Visit Provider Internal Medicine | DX: D50.9 Iron deficiency anemia, unspecified (principal) | CPT/HCPCS: 96365; J1756 ==

== ENCOUNTER 2021-12-26 13:32 | Outpatient (REF) | payer MEDICAID, SELFPAY | END 2021-12-26 13:33 | disposition home or self-care (01) | LOC: HO.MDS 13:32 | PROVIDERS: Visit Provider Internal Medicine | DX: D50.9 Iron deficiency anemia, unspecified (principal) | CPT/HCPCS: 96365; J1756 ==

== ENCOUNTER 2022-07-05 19:49 | Emergency (ER) | payer MEDICAID, SELFPAY ==
--- NOTE | 2022-07-05 20:00 | ECG_ITS ---
Test Reason : HEADACHE CHEST PAIN Blood Pressure : / mmHG Vent. Rate : 084 BPM Atrial Rate : 084 BPM P-R Int : 144 ms QRS Dur : 092 ms QT Int : 372 ms P-R-T Axes : 023 007 008 degrees QTc Int : 439 ms Normal sinus rhythm Moderate voltage criteria for LVH, may be normal variant ( R in aVL , Dougie product ) Borderline ECG When compared with ECG of 29-DEC-2017 17:09, No significant change was found Referred By: Generic ED Physician Electronically Signed By:MAGUI MCKAY MD
[2022-07-05 20:33] VITALS: BP 151/79; PULSE 79; RESP 18; TEMP 36.7; O2SAT 99; BMI 31.8
[2022-07-05 20:35] LABS: MANUAL DIFF FLAG NO
[2022-07-05 20:48] LABS: Basophils Absolute Auto 0.1 X10*3/uL (0.0-0.2); Basophils Percent Auto 0.7 % (0-2); Eosinophils Absolute Auto 0.3 X10*3/uL (0.0-0.4); Eosinophils Percent Auto 4.4 % (0-4); Hematocrit 30.3 % (37.0-47.0); Hemoglobin 9.5 g/dl (12.0-16.0); Imm Gran Abs Auto 0.03 X10*3/uL (0.00-0.03); Imm Gran Pct Auto 0.4 % (0.0-0.4); Lymphocytes Absolute Auto 1.9 X10*3/uL (1.2-4.9); Mean Corpuscular HGB Conc 31.4 g/dl (31.0-35.0); Mean Corpuscular Hemoglobin 20.6 pg (27.0-33.0); Mean Corpuscular Volume 65.6 fL (80.0-98.0); Mean Platelet Volume 10.8 fL (9.4-12.3); Monocytes Absolute Auto 0.6 X10*3/uL (0.1-1.2); Monocytes Percent Auto 8.5 % (2-11); Neutrophils Absolute Auto 4.2 x10*3/uL (2.0-8.3); Platelet Count 339 X10*3/uL (160-400); Red Blood Count 4.62 X10*6/uL (4.20-5.50); Red Cell Distribution Width 17.6 % (11.0-16.0); White Blood Count 7.1 X10*3/uL (4.8-10.8)
[2022-07-05 20:51] LABS: Alanine Aminotransferase 15 U/L (0-31); Albumin Level 4.4 g/dL (3.5-5.0); Alkaline Phosphatase 88 U/L (39-117); Anion Gap 13 (12-20); Aspartate Amino Transferase 13 U/L (5-31); Bilirubin Total 0.2 mg/dL (0.0-1.0); Blood Urea Nitrogen 13 mg/dL (9-16); Calcium 9.1 mg/dL (8.4-10.2); Carbon Dioxide 24 mmol/L (22-29); Chloride 108 mmol/L (96-108); Creatinine Clr Calc Pharmacy 85.1; Estimated Glomerular Filt Rate > 60; Glucose Random 91 mg/dL (60-115); Potassium 3.6 mmol/L (3.3-5.1); Sodium 141 mmol/L (135-145); Total Protein 7.9 g/dL (6.5-8.0)
[2022-07-05 20:53] LABS: INTERNATIONAL NORM RATIO 0.9 (0.9-1.1); Prothrombin Time 10.4 SEC (10.0-13.1)
[2022-07-05 20:56] LABS: Partial Thromboplastin Time 29.4 SEC (26.0-36.4)
[2022-07-05 20:59] LABS: Troponin-I High Sensitivity < 2.7 ng/L (<3.5-17.0)
[2022-07-05 23:18] VITALS: BP 158/86; PULSE 74; RESP 17; TEMP 36.8; O2SAT 99
--- NOTE | 2022-07-05 23:21 | ED.CHESTPAIN ---
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 Patient states that she has been under increased stress lately and that she is now felt like there is tingling and numbness that encompasses her entire left side of her face and wraps around to the back of her head and that she has noted she has large pieces of the hair that her falling out and also reports chest pressure of 8/10. She denies any difficulty with weakness in any of her extremities or speech difficulties and is otherwise been afebrile without any GI or symptoms. Related Data Previous Rx's Medication Instructions Recorded ibuprofen 800 mg tablet 800 mg PO Q8H PRN pain #20 tabs 06/24/20 hydroxyzine HCl 25 mg tablet 25 mg PO TID PRN anxiety #10 tabs 07/06/22 Allergies Allergy/AdvReac Type Severity Reaction Status Date / Time varicella virus vaccine live Allergy Unknown ITCHING,FABIAN Verified 06/24/20 15:53 [VARICELLA VIRUS VACCINE SEA,HEADACH LIVE] E Review of Systems Review of Systems: Pertinent positives and negatives as stated in HPI PMFSH Past Medical History Source: nursing notes reviewed Medical History Anxiety Asthma Chronic fatigue (~11/19/15) Cyst of left ovary (~11/19/15) Depression (~05/27/17) Iron deficiency anemia (~11/19/15) Irregular menstrual bleeding (~11/19/15) Irregular menstruation, unspecified (~05/18/16) Menometrorrhagia (~05/18/16) Nonintractable migraine (~09/21/16) Family History Family History Mother Colon cancer Colonic polyp Paternal Aunt Breast cancer Maternal Uncle Prostate CA Social History Social History Household Members: Spouse, Significant Other and Family Housing: House Patient Tobacco Use Status: Never used Tobacco Advance Directives: No Advance Directives Information Provided: Yes service: No Current occupational status: employed Physical Exam Vital Signs: Vital Signs: Last Vital Signs Temp 98.3 F 07/05/22 23:18 Pulse 74 07/05/22 23:18 Resp 17 07/05/22 23:18 BP 158/86 H 07/05/22 23:18 Pulse Ox 99 07/05/22 23:18 O2 Del Method Room Air 07/05/22 23:18 BMI result Body Mass Index 31.8 VITAL SIGNS: Reviewed. GENERAL: Well developed, well nourished, in no acute distress. HEAD: Normocephalic/atraumatic EYES: PERRLA, EOMI EARS: Ext canals without abnormality NOSE: Nares patent bilateral OROPHARYNX: no oral lesions noted, posterior pharynx clear NECK: Supple, no adenopathy LUNGS: Normal breath sounds. No adventitious sounds or accessory muscle use. SpO2<99> CARDIOVASCULAR: Regular rate and rhythm without noted murmurs, no JVD or lower extremity edema. ABDOMEN: Soft, non-tender, non-distended with bowel sounds. MUSCULOSKELETAL: No tenderness, deformities, or effusions noted on gross inspection. EXTREMITIES: No cyanosis, clubbing or edema. SKIN: Inspection of the skin reveals no rashes NEUROLOGIC: Alert and oriented x 4. Strength and sensation to light touch were grossly intact x 4, no facial asymmetry, no pronator drift, cranial nerves 2-12 are grossly intact. On assessment of facial numbness I do not identify any change in sensation there is no associated rash to suggest a herpes zoster. Medications Administered Discontinued Medications Generic Name Dose Route Start Last Admin Trade Name Freq PRN Reason Stop Dose Admin Hydroxyzine HCl 25 mg 07/05/22 23:19 07/05/22 23:42 Hydroxyzine Hcl 25 Mg Tablet PO 07/05/22 23:20 25 mg ONCE ONE Administration Medical Decision Making Medical Decision Making MDM Narrative: 42-year-old female with history and clinical presentation most consistent with likely anxiety/panic symptoms. I discussed with the patient that we would try some hydroxyzine for symptom relief and I have no clinical suspicion for focal deficits etiology and no suggestion of shingles. I reviewed all investigations and there is no evidence to suggest cardiopulmonary etiology, there is no infection, otherwise patient's lab work appears to be chronically stable. All results discussed with her bedside and she was offered hydroxyzine. On re-evaluation after hydroxyzine patient states that she is feeling better and she feels okay to leave. Differential Diagnosis Please see the discussion above Lab Data Please see the discussion above 07/05/22 20:30 07/05/22 20:30 Labs: Lab Results 07/05/22 07/05/22 07/05/22 Range/Units 20:30 20:30 20:30 WBC 7.1 (4.8-10.8) X10*3/uL RBC 4.62 (4.20-5.50) X10*6/uL Hgb 9.5 L (12.0-16.0) g/dl Hct 30.3 L (37.0-47.0) % MCV 65.6 L (80.0-98.0) fL MCH 20.6 L (27.0-33.0) pg MCHC 31.4 (31.0-35.0) g/dl RDW 17.6 H (11.0-16.0) % Plt Count 339 (160-400) X10*3/uL MPV 10.8 (9.4-12.3) fL Immature Gran % (Auto) 0.4 (0.0-0.4) % Neut % (Auto) 59.0 (45-73) % Lymph % (Auto) 27.0 (20-40) % [place] % (Auto) 8.5 (2-11) % Eos % (Auto) 4.4 H (0-4) % Baso % (Auto) 0.7 (0-2) % Lymph # (Auto) 1.9 (1.2-4.9) X10*3/uL [place] # (Auto) 0.6 (0.1-1.2) X10*3/uL Eos # (Auto) 0.3 (0.0-0.4) X10*3/uL Baso # (Auto) 0.1 (0.0-0.2) X10*3/uL Abs Immat Gran (auto) 0.03 (0.00-0.03) X10*3/uL Absolute Neuts (auto) 4.2 (2.0-8.3) x10*3/uL Absolute Nucleated RBC 0.000 (0.0-0.012) X10*3/uL Nucleated RBC % (auto) 0.0 (0.0-0.2) /100WBC PT 10.4 (10.0-13.1) SEC INR 0.9 (0.9-1.1) APTT 29.4 (26.0-36.4) SEC Sodium 141 (135-145) mmol/L Potassium 3.6 (3.3-5.1) mmol/L Chloride 108 (96-108) mmol/L Carbon Dioxide 24 (22-29) mmol/L Anion Gap 13 (12-20) BUN 13 (9-16) mg/dL Creatinine 0.95 (0.5-1.4) mg/dL Estim Creat Clear Calc 85.1 Estimated GFR > 60 Random Glucose 91 (60-115) mg/dL Calcium 9.1 (8.4-10.2) mg/dL Total Bilirubin 0.2 (0.0-1.0) mg/dL AST 13 (5-31) U/L ALT 15 (0-31) U/L Alkaline Phosphatase 88 (39-117) U/L Troponin I High Sens (<3.5-17.0) ng/L Total Protein 7.9 (6.5-8.0) g/dL Albumin 4.4 (3.5-5.0) g/dL 07/05/22 Range/Units 20:30 WBC (4.8-10.8) X10*3/uL RBC (4.20-5.50) X10*6/uL Hgb (12.0-16.0) g/dl Hct (37.0-47.0) % MCV (80.0-98.0) fL MCH (27.0-33.0) pg MCHC (31.0-35.0) g/dl RDW (11.0-16.0) % Plt Count (160-400) X10*3/uL MPV (9.4-12.3) fL Immature Gran % (Auto) (0.0-0.4) % Neut % (Auto) (45-73) % Lymph % (Auto) (20-40) % [place] % (Auto) (2-11) % Eos % (Auto) (0-4) % Baso % (Auto) (0-2) % Lymph # (Auto) (1.2-4.9) X10*3/uL [place] # (Auto) (0.1-1.2) X10*3/uL Eos # (Auto) (0.0-0.4) X10*3/uL Baso # (Auto) (0.0-0.2) X10*3/uL Abs Immat Gran (auto) (0.00-0.03) X10*3/uL Absolute Neuts (auto) (2.0-8.3) x10*3/uL Absolute Nucleated RBC (0.0-0.012) X10*3/uL Nucleated RBC % (auto) (0.0-0.2) /100WBC PT (10.0-13.1) SEC INR (0.9-1.1) APTT (26.0-36.4) SEC Sodium (135-145) mmol/L Potassium (3.3-5.1) mmol/L Chloride (96-108) mmol/L Carbon Dioxide (22-29) mmol/L Anion Gap (12-20) BUN (9-16) mg/dL Creatinine (0.5-1.4) mg/dL Estim Creat Clear Calc Estimated GFR Random Glucose (60-115) mg/dL Calcium (8.4-10.2) mg/dL Total Bilirubin (0.0-1.0) mg/dL AST (5-31) U/L ALT (0-31) U/L Alkaline Phosphatase (39-117) U/L Troponin I High Sens < 2.7 (<3.5-17.0) ng/L Total Protein (6.5-8.0) g/dL Albumin (3.5-5.0) g/dL Independent Interpretation I performed an independent interpretation of an: EKG Interpretation: Normal sinus rhythm, HR-144, no STEMI, AL/QRS/QTC is within normal limits. External Record Review External record reviewed: Outpatient record and Prior outpatient labs Discharge Plan Discharge Clinical Impression: Atypical chest pain, Left facial numbness Patient Disposition: Home, Self-Care Instructions: Chest Pain (ED), Paresthesia (ED), Anxiety (ED) Additional Instructions: 1. Le proporcionar? phoenix receta para un medicamento que lo ayudar? con kathe s?ntomas de ansiedad. Le recomendamos que lo use por la noche. 2. Domonique un seguimiento con [place] proveedor de atenci?n primaria ma?jonathan por la ma?jonathan para programar phoenix johnnie para phoenix reevaluaci?n. Regrese a la moira de emergencias si los s?ntomas empeoran. 1. Will provided a prescription for medication that will help with your anxiety symptoms. Recommend that you use this in the evening. 2. Please follow-up with your primary care provider tomorrow morning to set up an appointment for re-evaluation. Return to the ER for any worsening symptoms. Prescriptions: New hydroxyzine HCl 25 mg tablet 25 mg PO TID PRN (Reason: anxiety) Qty: 10 0RF No Action ibuprofen 800 mg tablet 800 mg PO Q8H PRN (Reason: pain) Qty: 20 0RF Referrals: Name,MD Jadiel [Primary Care Provider] - Print Language: Scottish
[2022-07-05] MEDS: hydrOXYzine HCL 25 MG TABLET PO (23:42)
--- NOTE | 2022-07-06 00:09 | PC.NURSE ---
provider into assess pt, pt a&o, able to answer question appropriately, Reviewed discharge instruction with pt. pt verbalized understanding. Notified JOSE Jimenez.
== END 2022-07-06 00:10 | disposition home or self-care (01) ==
PROVIDERS: Emergency Provider Student in an Organized Health Care Education/Training Program; PCP Internal Medicine Geriatric Medicine
DX: R07.89 Other chest pain (principal); R51.9 Headache, unspecified; R20.0 Anesthesia of skin; Z79.899 Other long term (current) drug therapy
CPT/HCPCS: 36415; 80053; 84484; 85025; 85610; 85730; 93005; 99284

== ENCOUNTER 2022-11-04 13:31 | Outpatient (REF) | payer MEDICAID, SELFPAY ==
--- NOTE | ~2022-11-04 | US_ITS ---
EXAMINATION: US PELVIS CLINICAL INFORMATION: Ovarian cyst COMPARISON: 05/09/2019, 10/05/2018 TECHNIQUE: Ultrasound of the pelvis is performed using both transabdominal and transvaginal transducers along with Doppler. Transvaginal imaging is performed due to inadequate visualization transabdominally. FINDINGS: Uterus: The uterus is anteverted and measures 10.4 x 6.3 x 7.8 cm. The double wall endometrial thickness is 26 mm. The endometrium in the lower uterine segment appears unremarkable. In the upper body and fundus, there is irregular thickening and fluid collections in the endometrial canal. The uterus is smooth in contour and has normal myometrial echogenicity. A 1.7 x 1.5 x 1.4 cm subserosal fibroid is suspected in the posterior body of the uterus. Adnexa: Both ovaries are visualized. There is normal color flow to the adnexa. There is no ovarian torsion. There is no pelvic ascites or fluid collection. Right ovary measures 3.4 x 2.5 x 2.2 cm. Left ovary measures 3.4 x 2.1 x 2.9 cm. There is an eccentric cyst measuring 2.3 x 1.5 x 2 cm which is likely physiologic. US/US pelvic and transvaginal IMPRESSION: The endometrium is thickened and heterogeneous in the fundus. Clinical and laboratory correlation recommended. Close interval follow-up or further evaluation by hysteroscopy is suggested. Probable small subserosal fibroid in the posterior fundus of the uterus. Left ovarian cyst, likely physiologic.
== END 2022-11-04 13:32 | disposition home or self-care (01) ==
LOC: HO.US 13:31
PROVIDERS: PCP Internal Medicine Geriatric Medicine; Visit Provider Student in an Organized Health Care Education/Training Program
DX: N83.299 Other ovarian cyst, unspecified side (principal)
CPT/HCPCS: 76830; 76856

== ENCOUNTER 2023-02-17 10:51 | Outpatient (REF) | payer MEDICAID, SELFPAY ==
[2023-02-17 11:33] LABS: MANUAL DIFF FLAG NO
[2023-02-17 11:49] LABS: Basophils Percent Auto 0.5 % (0-2); Eosinophils Absolute Auto 0.1 X10*3/uL (0.0-0.4); Eosinophils Percent Auto 1.7 % (0-4); Hematocrit 26.4 % (37.0-47.0); Hemoglobin 7.7 g/dl (12.0-16.0); Imm Gran Abs Auto 0.03 X10*3/uL (0.00-0.03); Imm Gran Pct Auto 0.4 % (0.0-0.4); Lymphocytes Absolute Auto 1.5 X10*3/uL (1.2-4.9); Lymphocytes Percent Auto 19.5 % (20-40); Mean Corpuscular HGB Conc 29.2 g/dl (31.0-35.0); Mean Corpuscular Volume 58.3 fL (80.0-98.0); Monocytes Absolute Auto 0.6 X10*3/uL (0.1-1.2); Monocytes Percent Auto 7.7 % (2-11); Neutrophils Absolute Auto 5.5 x10*3/uL (2.0-8.3); Neutrophils Percent Auto 70.2 % (45-73); Platelet Count 400 X10*3/uL (160-400); Red Blood Count 4.53 X10*6/uL (4.20-5.50); Red Cell Distribution Width 20.2 % (11.0-16.0); White Blood Count 7.8 X10*3/uL (4.8-10.8)
[2023-02-17 12:48] LABS: Iron 11 mcg/dL (30-160); Percent Iron Saturation 3 % (15-50); Total Iron Binding Capacity 346 mcg/dL (228-428); Unsaturated Iron Binding 335 ug/dL
== END 2023-02-17 10:52 | disposition home or self-care (01) ==
LOC: HO.HHCL 10:51
PROVIDERS: Visit Provider Student in an Organized Health Care Education/Training Program
DX: D50.9 Iron deficiency anemia, unspecified (principal)
CPT/HCPCS: 36415; 83540; 85025

== ENCOUNTER 2023-04-06 15:08 | Outpatient (AMB) | payer MEDICAID, SELFPAY ==
[2023-04-06 15:28] VITALS: BMI 31.8
--- NOTE | 2023-04-06 15:28 | MHC.OFFVIS ---
Intake Vital Signs 04/06/23 15:28 Height 5 ft 6 in Weight 197 lb BMI 31.8 Intake Visit Reasons: uterine leiomyoma/DO NOT RS Associate Trainer Required: Yes Associate Trainer Language: Radio Machinist Name: Maricarmen Coley Information Interpreted: non-clinical & clinical Retail Associate Manager Bilingual: Retail Associate Manager Bilingual Present (Maricarmen) Allergies varicella virus vaccine live [VARICELLA VIRUS VACCINE LIVE] Allergy (Unknown, Verified 04/06/23 15:33) ITCHING,NAUSEA,HEADACHE Is last menstrual period known: Yes Last menstrual period: 03/12/23 Post menopausal: No HPI HPI Comments History of Present Illness Details Presenting referred from her PCP complaining of heavy menstrual cycle associated with pelvic cramping and passage of blood clots. Pelvic ultrasound done in H&H in 10/28 showed the following: Uterus: The uterus is anteverted and measures 10.4 x 6.3 x 7.8 cm. The double wall endometrial thickness is 26 mm. The endometrium in the lower uterine segment appears unremarkable. In the upper body and fundus, there is irregular thickening and fluid collections in the endometrial canal. The uterus is smooth in contour and has normal myometrial echogenicity. A 1.7 x 1.5 x 1.4 cm subserosal fibroid is suspected in the posterior body of the uterus. Adnexa: Both ovaries are visualized. There is normal color flow to the adnexa. There is no ovarian torsion. There is no pelvic ascites or fluid collection. Right ovary measures 3.4 x 2.5 x 2.2 cm. Left ovary measures 3.4 x 2.1 x 2.9 cm. There is an eccentric cyst measuring 2.3 x 1.5 x 2 cm which is likely physiologic. H&H in 02/27 was 7.7/26.4 Last co testing was negative in 11/24 Last mammogram was BI-RADS 1 in 03/29 [facility] Medical History (Updated 04/06/23 @ 15:56 by Beto Benavidez MD) Nonintractable migraine (~09/21/16) Irregular menstrual bleeding (~11/19/15) Iron deficiency anemia (~11/19/15) Menometrorrhagia (~05/18/16) Irregular menstruation, unspecified (~05/18/16) Depression (~05/27/17) Chronic fatigue (~11/19/15) Cyst of left ovary (~11/19/15) Anxiety Asthma Surgical History (Updated 04/06/23 @ 15:36 by KAROL Vazquez) H/O tubal ligation Family History Mother Colon cancer Colonic polyp Paternal Aunt Breast cancer Maternal Uncle Prostate CA Social History Household Members: Spouse, Significant Other and Family Housing: House Patient Tobacco Use Status: Never used Tobacco service: No Current occupational status: employed Female Reproductive History Menstrual Age of Menarche: 9 Duration of menses: other Date of last menstrual period: 03/12/23 control method: permanent sterilization Total pregnancies: 3 Full term: 3 Number of Living Children: 2 Date of last pap smear: 11/10/18 (negative) History of abnormal pap smear: No Date of Mammogram: 03/14/21 Review of Systems Const All systems reviewed & are unremarkable except as noted in HPI and below Card Reports as per HPI Resp Reports as per HPI GI Reports as per HPI and Reports no additional complaints Reports as per HPI Physical Exam Vital Signs: BMI result Body Mass Index 31.8 Const General: cooperative, healthy appearing and comfortable Chest Chest palpation & inspection: normal inspection of the chest and normal palpation of entire chest wall Breast/axilla inspection: normal inspection of the breasts and normal inspection of the axillae Breast/axilla palpation: normal palpation of the breasts, normal palpation of the axillae and no axillary lymphadenopathy Resp Effort & Inspection: normal respiratory effort Auscultation: clear to auscultation bilaterally Percussion: percussion normal Cardio Palpation: normal PMI Rate: regular rate Rhythm: regular rhythm Heart sounds: no murmurs and no rubs Peripheral pulses: Peripheral pulses 2+ throughout GI Inspection: Yes normal to inspection Palpation (GI): Soft to palpation, nontender, no guarding, not rigid and No hepatosplenomegaly present Percussion: Yes normal to percussion Auscultation: normal bowel sounds Rectal Exam - Female: deferred General: Yes bladder normal to palpation External Female Exam: No lesion Speculum Exam - Vagina: normal appearance of the vagina, normal palpation, normal vaginal discharge and not erythematous Speculum Exam - Cervix: normal appearance of the cervix and normal palpation Bimanual exam- vagina & uterus: normal bimanual exam, normal palpation, uterine size normal, bladder normal to palpation, consistency normal and normal palpation Bimanual Exam- Adnexa, other: normal adnexae, no masses and no tenderness Office Procedures Endometrial Biopsy Details: The patient was counseled regarding the indication and benefits of endometrial sampling to rule out endometrial pathology including not limited to endometrial hyperplasia or endometrial cancer and others; The alternatives (Either do nothing vs. hysteroscopy D&C) & the risks were discussed with the patient including but not limited: pain, uterine perforation, bleeding, infection, possible injury to bladder, bowel, ureter, possible need for blood transfusion with all its possible risks. The patient verbalized understanding all questions answered and signed consent. UPT done in the office was negative The patient was placed into the dorsal lithotomy position; a speculum was inserted in the vagina. Using aseptic technique for the procedure, the cervix was cleansed with Betadine. The anterior lip of the cervix was grasped with a single tooth tenaculum. The uterus was sounded to 7 cm with a 4 mm Pipelle was used. Tissues samples were obtained and placed in formalin, in a patient labeled container and sent to the pathology department. At the end of the procedure, there was minimal bleeding noted The patient tolerated the procedure well and was discharged in good condition with the following instructions: Nothing in the vagina until the bleeding stops. No sex until the bleeding stops, to call if any of the following occurs: fever (>100.4), flu-like symptoms, abdominal pain, heavy bleeding, four smelling vaginal discharge. The patient was instructed to schedule a Follow up appointment in 2 weeks to discuss pathology results of the biopsy and treatment options. This note was generated with a voice recognition program. Some errors may have been overlooked during the review of this note. Sometimes these errors may affect the content or meaning of a given sentence. [id number] Biopsy Assessment & Plan Assessment & Plan (1) Abnormal uterine bleeding (AUB): Comment: With anemia Code(s): N93.9 - Abnormal uterine and vaginal bleeding, unspecified Plan: Co testing done, GC and chlamydia taken CBC, prolactin, TSH, HCG; pelvic ultrasound was recently done. Discussed with the patient the different causes of abnormal bleeding including thyroid disorders, uterine and ovarian pathology, endometrial hyperplasia, carcinoma and other potential causes. Discussed with the patient the work up including CBC (to r/o anemia), prolactin, TSH, pelvic Ultrasound, endometrial biopsy to r/o endometrial pathology. All questions answered and the patient verbalized understanding. EMB done, see procedure note. Instructed the patient to schedule an appointment for a follow-up in 5 days pre (2) Uterine myoma: Code(s): D25.9 - Leiomyoma of uterus, unspecified Plan: Discussed with the patient the findings on pelvic ultrasound & the risk of myosarcoma; discussed with the patient the options of treatment including expectant management versus hysterectomy; the pros and cons, risks benefits of each approach were discussed with the patient including the fact that in cases of myosarcoma, surgical treatment can lead to early diagnosis and positively affects the prognosis; after further discussion, the patient decided to proceed with expectant management. Will repeat pelvic ultrasound periodically. Instructions given to patient to call in case any of the following occurs: pressure symptoms, abnormal uterine bleeding, pelvic pain; and to schedule a future office follow-up appointment for reassessment and to order a repeat ultrasound . All questions answered, the patient verbalized understanding and agreed with the plan . (3) Iron deficiency anemia: Code(s): D50.9 - Iron deficiency anemia, unspecified Plan: Since the patient can not tolerate p.o. iron and has significant anemia will refer to hematology for iron transfusion (4) Thickened endometrium: Comment: on pelvic ultrasound Code(s): R93.89 - Abnormal findings on diagnostic imaging of other specified body structures Plan: Discussed with the patient the finding on ultrasound in addition to the differential diagnosis including but not limited to late menstrual cycle, hyperplasia , polyp or cancer were discussed with the patient. Recommended to the patient that the next step is an endometrial sampling via hysteroscopy D&C possible polypectomy versus endometrial biopsy to r/o endometrial pathology including hyperplasia or cancer. All the pros and cons risks and benefits of each approach were discussed with the patient, endometrial biopsy being less invasive, office procedure with less sensitivity and inability diagnose a polyp and removal versus hysteroscopy done under anesthesia more invasive more sensitive to endometrial cancer and possibility of diagnosing and endometrial polyp with the possibility of polypectomy. All questions were answered pt verbalized understanding and decided to proceed with endometrial biopsy. EMB done, see procedure note Orders: Orders Prolactin Today N93.9 - Abnormal uterine and vaginal bleeding, unspecified HCG Quantitative Today N93.9 - Abnormal uterine and vaginal bleeding, unspecified AMB Endometrial Biopsy Today N93.9 - Abnormal uterine and vaginal bleeding, unspecified Complete Blood Count no Diff Today N93.9 - Abnormal uterine and vaginal bleeding, unspecified TSH reflex Free T4 Today N93.9 - Abnormal uterine and vaginal bleeding, unspecified Lutenizing Hormone Today N93.9 - Abnormal uterine and vaginal bleeding, unspecified Follicle Stimulating Hormone Today N93.9 - Abnormal uterine and vaginal bleeding, unspecified MM screening mammo BI Today Z12.31 - Encounter for screening mammogram for malignant neoplasm of breast Referrals Hematology & Oncology Referral D50.9 - Iron deficiency anemia, unspecified Coding Level of Care Code New Pt Level 3 (08276) Diagnoses Abnormal uterine bleeding (AUB) N93.9 Uterine myoma D25.9 Iron deficiency anemia D50.9 Thickened endometrium R93.89 CPT Codes Endometrial Biopsy - CPT: 41006-[id number] Biopsy ([id number])
== END 2023-04-06 16:00 | disposition home or self-care (01) ==
LOC: HO.HWS 15:08
PROVIDERS: PCP Internal Medicine Geriatric Medicine; Visit Provider Obstetrics & Gynecology
DX: N93.9 Abnormal uterine and vaginal bleeding, unspecified (principal); D25.9 Leiomyoma of uterus, unspecified; D50.9 Iron deficiency anemia, unspecified; R93.89 Abnormal findings on diagnostic imaging of other specified body structures
CPT/HCPCS: 58100; 99203

== ENCOUNTER 2023-04-06 15:08 | Outpatient (REF) | payer MEDICAID, SELFPAY ==
[2023-04-06 16:22] LABS: Hemoglobin 7.5 g/dl (12.0-16.0); Mean Corpuscular Hemoglobin 16.9 pg (27.0-33.0); Red Blood Count 4.44 X10*6/uL (4.20-5.50)
[2023-04-06 16:24] LABS: Hematocrit 24.9 % (37.0-47.0); Mean Corpuscular HGB Conc 30.1 g/dl (31.0-35.0); Platelet Count 361 X10*3/uL (160-400); Red Cell Distribution Width 20.3 % (11.0-16.0); White Blood Count 6.3 X10*3/uL (4.8-10.8)
[2023-04-06 17:37] LABS: Mean Corpuscular Volume 56.1 fL (80.0-98.0)
[2023-04-06 17:38] LABS: PLT ABN DIST 1
[2023-04-06 17:40] LABS: HCG Quantitative < 2 mIU/mL; TSH reflex Free T4 1.41 uIU/mL (0.32-4.0)
[2023-04-06 18:33] LABS: CT PCR NOT DETECTED (Not Detect.); NG PCR NOT DETECTED (Not Detect.)
[2023-04-08 10:23] LABS: Follicle Stimulating Hormone 3.8 mIU/mL; Lutenizing Hormone 2.6 mIU/mL; Prolactin 6.9 ng/mL
== END 2023-04-06 15:09 | disposition home or self-care (01) ==
LOC: HO.LAB 15:08
PROVIDERS: PCP Internal Medicine Geriatric Medicine; Visit Provider Obstetrics & Gynecology
DX: N93.9 Abnormal uterine and vaginal bleeding, unspecified (principal); D25.9 Leiomyoma of uterus, unspecified; D50.9 Iron deficiency anemia, unspecified; R93.89 Abnormal findings on diagnostic imaging of other specified body structures
CPT/HCPCS: 0353U; 58100; 83001; 83002; 84146; 84443; 84702; 85027; 87624; 88142; 88305; 99202

== ENCOUNTER 2023-04-06 15:58 | Outpatient (REF) | payer MEDICAID, SELFPAY ==
[2023-04-13 04:38] LABS: HPV mRNA E6/E7 rflx Not Detected (Not Detected)
== END 2023-04-06 15:59 | disposition home or self-care (01) ==
LOC: HO.LNP 15:58
PROVIDERS: Visit Provider Obstetrics & Gynecology
DX: R93.89 Abnormal findings on diagnostic imaging of other specified body structures (principal); N93.9 Abnormal uterine and vaginal bleeding, unspecified
CPT/HCPCS: 87624; 88142; 88305

== ENCOUNTER 2023-04-07 08:27 | Outpatient (AMB) | payer MEDICAID, SELFPAY ==
--- NOTE | 2023-04-07 08:28 | A.OFFVIS_ITS ---
Intake Intake Visit Reasons: H&H follow up Allergies varicella virus vaccine live [VARICELLA VIRUS VACCINE LIVE] Allergy (Unknown, Verified 04/06/23 15:33) ITCHING,NAUSEA,HEADACHE HPI HPI Comments History of Present Illness Details The patient is scheduled a telehealth visit for appointment regarding H&H. H&H done yesterday came back at 7.5/24.9. The patient is experiencing weakness and tiredness . EMB still pending [facility] Medical History Nonintractable migraine (~09/21/16) Irregular menstrual bleeding (~11/19/15) Iron deficiency anemia (~11/19/15) Menometrorrhagia (~05/18/16) Irregular menstruation, unspecified (~05/18/16) Depression (~05/27/17) Chronic fatigue (~11/19/15) Cyst of left ovary (~11/19/15) Anxiety Asthma Surgical History H/O tubal ligation Family History Mother Colon cancer Colonic polyp Paternal Aunt Breast cancer Maternal Uncle Prostate [place] Social History Household Members: Spouse, Significant Other and Family Housing: House Patient Tobacco Use Status: Never used Tobacco service: No Current occupational status: employed Female Reproductive History Menstrual Age of Menarche: 9 Review of Systems Const All systems reviewed & are unremarkable except as noted in HPI and below Reports as per HPI and Reports no additional complaints GI Reports no additional complaints Reports no additional complaints Assessment & Plan Assessment & Plan (1) Abnormal uterine bleeding (AUB): Comment: With anemia Code(s): N93.9 - Abnormal uterine and vaginal bleeding, unspecified Plan: Discussed with the patient the results of her low H&H, recommended to the patient to go to emergency room for 2 units of packed RBC transfusion. The pathology Department was called to expedite EMB results. Emergency department was in 4 of the patient coming for blood transfusion. Will schedule an appointment for the patient tomorrow to discuss options of treatment for AUB. All questions answered, the patient verbalized understanding and agreed with the plan. I spent a total of 20 minutes reviewing the chart, talking to the patient via video and documenting in the medical record. Telehealth Telehealth Location of provider rendering services: practice address Location of patient: address on file Patient Identification confirmed using: Name, : Yes Telehealth method: video Patient verbally consented to treatment: Yes Patient verbally consented to billing insurance company: Yes Patient informed of any privacy concerns related to visit: Yes Coding Level of Care Code Tele Est Pt Level 3 (03852) Diagnoses Abnormal uterine bleeding (AUB) N93.9
== END 2023-04-07 10:32 | disposition home or self-care (01) ==
LOC: HO.HWS 08:27
PROVIDERS: PCP Internal Medicine Geriatric Medicine; Visit Provider Obstetrics & Gynecology
DX: N93.9 Abnormal uterine and vaginal bleeding, unspecified (principal)
CPT/HCPCS: 99213

== ENCOUNTER → 2023-04-07 08:27 | Outpatient (BNVA) | payer MEDICAID, SELFPAY | PROVIDERS: PCP Internal Medicine Geriatric Medicine; Visit Provider Obstetrics & Gynecology ==

== ENCOUNTER 2023-04-07 09:36 | Emergency (ER) | payer MEDICAID, OTHER, SELFPAY ==
[2023-04-07] VITALS (11 sets, daily range): BP systolic 109–139; BP diastolic 65–90; PULSE 71–86; RESP 14–20; TEMP 36.3–37.2; O2SAT 97–100; BMI 28.0
--- NOTE | 2023-04-07 09:43 | ED_ITS ---
HPI - General Adult General Chief complaint: Recheck/Abnormal Lab/Rx Stated complaint: Needs Transfusion Time Seen by Provider: 04/07/23 09:43 Source: patient and human service coordinator Mode of arrival: ambulatory Limitations: language barrier History of Present Illness HPI narrative: Patient is a 43 year old assigned female at with a history of abnormal uterine bleeding, now resolved, presenting to the emergency department today for a blood transfusion. Patient states that she was having excessive uterine bleeding that has now stopped and her OBGYN told her to come down to the ER for blood transfusions. I spoke to Dr. Benavidez who recommended the patient get 2 units of RBCs and discharged. He states he performed an exam and confirmed the bleeding had stopped. Patient denies any dizziness, lightheadedness, abdominal pain, nausea, vomiting, fever, chills, blurry vision, double vision, loss of vision, chest pain, difficulty breathing, shortness of breath, back pain, night sweats, pain with urination, increased urinary frequency, increased urinary urgency, blood in her urine or stool, syncope or a near syncopal episode, recent trauma or falls, bowel incontinence, bladder incontinence, bowel retention, bladder retention, or any other complaints at this time. Relieving factors: none Exacerbating factors: none Associated symptoms: denies other symptoms Treatments prior to arrival: none Related Data Home Medications Medication Instructions Recorded Confirmed ascorbic acid (vitamin C) 250 mg 250 mg PO QAM 04/06/23 tablet psyllium husk (aspartame) 3 ea PO BID 04/06/23 gram/5.8 gram oral powder (Reguloid (aspartame)) Previous Rx's Medication Instructions Recorded ibuprofen 800 mg tablet 800 mg PO Q8H PRN pain #20 tabs 06/24/20 hydroxyzine HCl 25 mg tablet 25 mg PO TID PRN anxiety #10 tabs 07/06/22 Allergies Allergy/AdvReac Type Severity Reaction Status Date / Time varicella virus vaccine live Allergy Unknown ITCHING,FABIAN Verified 04/07/23 09:49 [VARICELLA VIRUS VACCINE SEA,HEADACH LIVE] E Review of Systems Constitutional: Constitutional: Reports no additional constitutional complaints, Denies chills, Denies fever(s) and Denies night sweats Eyes: Eyes: Reports no additional eye complaints, Denies blurry vision, Denies change in vision, Denies diplopia, Denies eye discharge, Denies loss of vision and Denies eye pain ENT: Denies dizziness Cardiovascular: Cardiovascular: Reports no additional cardiovascular complaints, Denies chest pain, Denies lightheadedness, Denies Loss of Consciousness and Denies dyspnea Respiratory: Respiratory: Reports no additional respiratory complaints and Denies dyspnea Gastrointestinal: Gastrointestinal: Reports no additional gastrointestinal complaints, Denies abdominal pain, Denies melena, Denies hematochezia, Denies change in bowel habits and Denies change in stool character Genitourinary: Genitourinary: Denies hematuria, Denies urinary frequency, Denies dysuria, Denies urinary incontinence, Denies urinary hesitancy and Denies urinary urgency Comments: excessive vaginal bleeding - now resolved Musculoskeletal: Musculoskeletal: Reports no additional musculoskeletal complaints, Denies numbness and Denies tingling Neurologic: Denies dizziness, Denies loss of vision, Denies numbness and Denies tingling Psychiatric: Psychiatric: Reports no additional psychiatric complaints Endocrine: Endocrine: Reports no additional endocrine complaints Hematologic/Lymphatic: Hematologic/Lymphatic: Reports no additional hematologic/lymphatic complaints Allergic/Immunologic: Allergic/Immunologic: Reports no additional allergic/immunologic complaints PMFSH Past Medical History Attestation statement: The following information was validated with the patient. Source: old records reviewed and nursing notes reviewed Medical History Nonintractable migraine (~09/21/16) Irregular menstrual bleeding (~11/19/15) Iron deficiency anemia (~11/19/15) Menometrorrhagia (~05/18/16) Irregular menstruation, unspecified (~05/18/16) Depression (~05/27/17) Chronic fatigue (~11/19/15) Cyst of left ovary (~11/19/15) Anxiety Asthma Surgical History H/O tubal ligation Family History Family History Mother Colon cancer Colonic polyp Paternal Aunt Breast cancer Maternal Uncle Prostate CA Social History Social History Household Members: Spouse, Significant Other and Family Housing: House Patient Tobacco Use Status: Never used Tobacco service: No Current occupational status: employed Physical Exam ED Vital Signs: Vital Signs - 24 hr 04/07/23 09:45 04/07/23 11:17 04/07/23 12:38 Temperature 98.8 F 97.8 F 98.3 F Pulse Rate 82 74 Respiratory Rate 20 14 16 Blood Pressure 139/90 H 136/68 124/73 Pulse Oximetry 99 100 100 Oxygen Delivery Method Room Air Room Air Room Air 04/07/23 12:53 04/07/23 13:08 04/07/23 14:10 Temperature 97.4 F 98.4 F 97.9 F Pulse Rate 74 71 74 Respiratory Rate 18 16 16 Blood Pressure 109/70 111/75 133/79 Pulse Oximetry 100 Oxygen Delivery Method Room Air BMI result Body Mass Index 28.0 Const General: cooperative, no acute distress, alert and awake Nutritional Appearance: well nourished Orientation/consciousness: patient oriented x3 Limitations: no limitations HENMT Head: Yes normal to inspection and Yes atraumatic Ears: hearing grossly normal bilaterally and external ears normal General nose exam: Normal external nose present, no nasal discharge noted and no epistaxis Face and sinus: Yes normal facial exam, No abrasion and No laceration Mouth: Normal oral and palatal mucosa present, no drooling and no muffled voice Eyes General: appearance normal, both eyes and all related structures Periorbital: periorbital findings normal Eyelids: Yes eyelids normal Conjunctivae: conjunctivae normal Pupils: Equal, round and reactive pupils present EOM: EOMs intact bilaterally Neck Neck: Yes normal visual inspection, Yes full ROM and Yes no lymphadenopathy Chest Chest palpation & inspection: normal inspection of the chest Resp Effort & Inspection: normal respiratory effort and able to speak in complete sentences GI Inspection: Yes normal to inspection Neuro General: patient oriented x3 and moves all extremities Cranial nerves: Yes Equal, round and reactive pupils present Cognition (Neuro): normal cognition Motor exam (neuro): 5/5 motor strength present throughout Sensory Exam: Normal double simultaneous stimulation for sensation Coordination: [id number] test normal Extrem General: Yes normal to inspection, Yes full ROM and Yes capillary refill normal Psych Appearance: grossly normal Mental Status: mental status grossly normal Affect: normal affect Attitude: cooperative Thought process: Normal thought process present Thought content: Normal thought content present Insight: Good insight present (Psych) Medications Administered Discontinued Medications Generic Name Dose Route Start Last Admin Trade Name Freq PRN Reason Stop Dose Admin Sodium Chloride 100 mls @ 100 mls/hr 04/07/23 09:44 04/07/23 12:53 Ns IV 04/07/23 10:43 100 mls/hr ONCE ONE Administration Lorazepam 1 mg 04/07/23 09:59 04/07/23 11:36 Lorazepam 1 Mg Tablet PO 04/07/23 10:00 1 mg ONCE ONE Administration Medical Decision Making Medical Decision Making [facility] Narrative: Patient is a 43 year old assigned female at with a history of now resolved uterine bleeding presenting to the emergency department today for blood transfusion. Patient's physical exam was unremarkable. Patient's blood work from 04/06/2023 showed a hgb of 7.5 and hct of 24.9. Dr. Benavidez requested the patient be transfused 2 units of blood so she was. I explained my physical exam findings as well as all test results to the patient. I answered all questions asked by the patient. I stressed the importance of the patient taking her medication as prescribed. I stressed the importance of the patient following up with her primary care provider and her OBGYN. I stressed the importance of the patient returning to the emergency department immediately if her symptoms were to worsen or if she were to develop any dizziness, shortness of breath, difficulty breathing, chest pain, blurry vision, loss of vision, nausea, vomiting, abdominal pain, fever, chills, back pain, or any other complaints. Patient verbalized agreement and understanding with this treatment plan and discharge. Differential Diagnosis Differential Diagnoses: The differential diagnosis associated with the presentation includes Resolved intrauterine bleeding Anemia Need for blood transfusion Admission/Observation Consideration of admission/observation: Escalation of care including admission/observation considered Patient would have been admitted to the hospital had her work up had any findings where hospital admission was appropriate and her clinical presentation warranted hospital admission. Consult Healthcare Provider Management of the patient was discussed with: Associate Director Of Development (spoke to the OBGYN team as noted in the MDM Rationale portion of this note.) Lab Data [facility] Lab Attestation statement: I reviewed the patient's lab results. My interpretation of these results are in the MDM Rationale portion of this note. Labs: Lab Results 04/07/23 Range/Units 09:56 Blood Type O Negative Antibody Screen NEGATIVE Crossmatch See Detail Critical Care Time Critical Care Time Critical Care Time: Yes Total Critical Care Time: 55 Attestation: I spent 55 minutes of Critical Care Time with this patient. This does not include time spent on separately reported billable procedures. Discharge Plan Discharge Clinical Impression: Anemia Patient Disposition: Still a Patient Instructions: Anemia (ED) Additional Instructions: Follow up with your primary care provider and your OBGYN. Return to the emergency department immediately if your symptoms worsen or if you develop any dizziness, shortness of breath, difficulty breathing, chest pain, blurry vision, loss of vision, nausea, vomiting, abdominal pain, fever, chills, back pain, or any other complaints. Prescriptions: No Action ibuprofen 800 mg tablet 800 mg PO Q8H PRN (Reason: pain) Qty: 20 0RF hydroxyzine HCl 25 mg tablet 25 mg PO TID PRN (Reason: anxiety) Qty: 10 0RF Reguloid (aspartame) 3 gram/5.8 gram powder PO BID ascorbic acid (vitamin C) 250 mg tablet 250 mg PO QAM Referrals: Name,MD Jadiel [Primary Care Provider] - Beto Benavidez MD [Physician] - Stand Alone Forms: Work/School Release Print Language: Canadian
[2023-04-07] MEDS: LORazepam 1 MG TABLET PO (11:36)
--- NOTE | 2023-04-07 11:37 | PC.NURSE ---
this RN resumed care of pt at this time. ativan pulled/delay in scan d/t medical emergency in another room. medication now administered a this time. pt verbalizing she is feeling anxious d/t plan of care in regards to receiving blood transfusion. will reassess effectiveness of medication prior to transfusion being started. no sob/wob noted. respirations even and unlabored. call castañeda placed within reach.
--- NOTE | 2023-04-07 12:53 | PC.NURSE ---
blood transfusion started at this time. vss and up to date prior to transfusion being started. no sob/wob noted. respirations even and unlabored.
--- NOTE | 2023-04-07 13:04 | PC.NURSE ---
pt tolerating transfusion well at this time. no reactions identified/noted at this time. respirations remain even and unlabored.
--- NOTE | 2023-04-07 13:09 | PC.NURSE ---
pt tolerated first 15 min of transfusion well. vss and up to date. nsr on the cardiac rehabilitation specialist. no reactions/complications noted or identified at this time. respirations remain even and unlabored. call castañeda placed within reach.
--- NOTE | 2023-04-07 14:11 | PC.NURSE ---
vss and up to date at this time. nsr on the hotel custodian. pt continues to rest in no apparent distress. family bedside. call castañeda placed within reach.
== END 2023-04-07 19:21 | disposition home or self-care (01) ==
PROVIDERS: Emergency Provider Emergency Medicine Emergency Medical Services; PCP Internal Medicine Geriatric Medicine
DX: D50.9 Iron deficiency anemia, unspecified (principal); N93.9 Abnormal uterine and vaginal bleeding, unspecified; Z79.899 Other long term (current) drug therapy
CPT/HCPCS: 36430; 86850; 86900; 86901; 86923; 96360; 96361; 99284; 99285; P9016; S9485

== ENCOUNTER 2023-04-08 10:38 | Outpatient (AMB) | payer MEDICAID, SELFPAY ==
--- NOTE | 2023-04-08 11:28 | MHC.OFFVIS ---
Intake Vital Signs 04/08/23 11:29 Height 5 ft 7 in Weight 195 lb BMI 30.5 Intake Visit Reasons: Mirena insertion/? 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 The following workup was done : H&H in 02/27 was 7.7/26.4, repeat H&H on 04/06 7.5/24.9, the patient was sent for 2 units of packed RBC which was done yesterday Pelvic ultrasound done in H&H in 10/28 showed the following: Uterus: The uterus is anteverted and measures 10.4 x 6.3 x 7.8 cm. The double wall endometrial thickness is 26 mm. The endometrium in the lower uterine segment appears unremarkable. In the upper body and fundus, there is irregular thickening and fluid collections in the endometrial canal. The uterus is smooth in contour and has normal myometrial echogenicity. A 1.7 x 1.5 x 1.4 cm subserosal fibroid is suspected in the posterior body of the uterus. Adnexa: Both ovaries are visualized. There is normal color flow to the adnexa. There is no ovarian torsion. There is no pelvic ascites or fluid collection. Right ovary measures 3.4 x 2.5 x 2.2 cm. Left ovary measures 3.4 x 2.1 x 2.9 cm. There is an eccentric cyst measuring 2.3 x 1.5 x 2 cm which is likely physiologic. TSH, prolactin, hCG negative. FSH/LH premenopausal GC/CT were negative Endometrial biopsy pathology showed mixed pattern endometrium with no evidence of endometrial hyperplasia and/or malignancy Last co testing was negative in 11/24, repeat co testing done in 04/06 still pending Last mammogram was BI-RADS 1 in 03/29, the patient is scheduled for another screening mammogram [facility] Medical History Nonintractable migraine (~09/21/16) Irregular menstrual bleeding (~11/19/15) Iron deficiency anemia (~11/19/15) Menometrorrhagia (~05/18/16) Irregular menstruation, unspecified (~05/18/16) Depression (~05/27/17) Chronic fatigue (~11/19/15) Cyst of left ovary (~11/19/15) Anxiety Asthma Surgical History H/O tubal ligation Family History Mother Colon cancer Colonic polyp Paternal Aunt Breast cancer Maternal Uncle Prostate CA Social History Household Members: Spouse, Significant Other and Family Housing: House Patient Tobacco Use Status: Never used Tobacco service: No Current occupational status: employed Female Reproductive History Menstrual Age of Menarche: 9 Date of last menstrual period: 01/04/20 Total pregnancies: 2 Full term: 2 Review of Systems Card Reports as per HPI and Reports no additional complaints Resp Reports as per HPI and Reports no additional complaints GI Reports as per HPI and Reports no additional complaints Reports as per HPI Physical Exam Vital Signs: BMI result Body Mass Index 30.5 Const General: cooperative, healthy appearing and comfortable Resp Effort & Inspection: normal respiratory effort Auscultation: clear to auscultation bilaterally Percussion: percussion normal Cardio Palpation: normal PMI Rate: regular rate Rhythm: regular rhythm Heart sounds: no murmurs and no rubs Peripheral pulses: Peripheral pulses 2+ throughout GI Inspection: Yes normal to inspection Palpation (GI): Soft to palpation, nontender, no guarding, not rigid and No hepatosplenomegaly present Percussion: Yes normal to percussion Auscultation: normal bowel sounds Rectal Exam - Female: deferred Assessment & Plan Assessment & Plan (1) Abnormal uterine bleeding (AUB): Comment: With anemia status post 2 units of blood transfused Myoma Code(s): N93.9 - Abnormal uterine and vaginal bleeding, unspecified Plan: Will repeat CBC post transfusion Discussed with the patient the results of the work up done and options of treatment including Lysteda, BCP's, Mirena IUD, endometrial ablation and hysterectomy. All pros, cons, risks and benefits if each option was discussed with the patient and the patient decided to go ahead with endometrial ablation. so a more detailed discussion about the procedure was conducted including mechanism of action, effectiveness and its potential failure rate in the coming 3-5 years, its risks (initial or future failure of AUB control, uterine perforation, infection, injury to bladder, bowel, ureter, and blood vessels, possible need for blood transfusion, inability to access the uterine cavity in order to sample the endometrial cavity to rule out endometrial pathology including endometrial cancer and others), postablation syndrome. The benefits discussed with the patient include but not limited to: hypomenorrhea, amenorrhea, .... In addition, the patient understands that although the endometrial ablation is not a method of control it will decrease markedly her chance of getting . The patient verbalized understanding and signed a consent. (2) Uterine myoma: Code(s): D25.9 - Leiomyoma of uterus, unspecified Plan: Discussed with the patient the findings on pelvic ultrasound & the risk of myosarcoma; discussed with the patient the options of treatment including expectant management versus hysterectomy; the pros and cons, risks benefits of each approach were discussed with the patient including the fact that in cases of myosarcoma, surgical treatment can lead to early diagnosis and positively affects the prognosis; after further discussion, the patient decided to proceed with expectant management. Will repeat pelvic ultrasound periodically. Instructions given to patient to call in case any of the following occurs: pressure symptoms, abnormal uterine bleeding, pelvic pain; and to schedule a future office follow-up appointment for reassessment and to order a repeat ultrasound . All questions answered, the patient verbalized understanding and agreed with the plan . Orders: Orders Complete Blood Count no Diff Today N93.9 - Abnormal uterine and vaginal bleeding, unspecified Coding Level of Care Code Est Pt Level 3 (33046) Diagnoses Abnormal uterine bleeding (AUB) N93.9 Uterine myoma D25.9
[2023-04-08 11:29] VITALS: BMI 30.5
== END 2023-04-08 12:09 | disposition home or self-care (01) ==
LOC: HO.HWS 10:38
PROVIDERS: PCP Internal Medicine Geriatric Medicine; Referring Provider Internal Medicine Geriatric Medicine; Visit Provider Obstetrics & Gynecology
DX: N93.9 Abnormal uterine and vaginal bleeding, unspecified (principal); D25.9 Leiomyoma of uterus, unspecified
CPT/HCPCS: 99213

== ENCOUNTER → 2023-04-08 10:38 | Outpatient (BNVA) | payer MEDICAID, SELFPAY | PROVIDERS: PCP Internal Medicine Geriatric Medicine; Visit Provider Obstetrics & Gynecology | DX: N93.9 Abnormal uterine and vaginal bleeding, unspecified (principal); D25.9 Leiomyoma of uterus, unspecified; D64.9 Anemia, unspecified | CPT/HCPCS: 99212 ==

== ENCOUNTER 2023-04-09 06:55 | Day surgery (SDC) | payer MEDICAID, SELFPAY ==
[2023-04-09 07:46] VITALS: BP 129/78; PULSE 72; RESP 18; TEMP 36.1; O2SAT 99
[2023-04-09 07:47] VITALS: BMI 31.0
[2023-04-09] MEDS: Lactated Ringers 1,000 ML 50 ML IVCONT (08:09)
[2023-04-09 08:11] LABS: UPreg QC Valid YES; Urine Pregnancy NEGATIVE (NEGATIVE)
--- NOTE | 2023-04-09 08:22 | HO.ANESPROP2 ---
HPI - Anesthesia Eval Consult details Narrative: for D&C, hysteroscopy PMFSH Active Problems Active Problems: All Active Problems (Updated 04/08/23 @ 11:31 by Beto Benavidez MD) Thickened endometrium (Acute) Uterine myoma (Acute) Abnormal uterine bleeding (AUB) (Acute) Iron deficiency anemia (Chronic) Past Medical History Medical History Nonintractable migraine (~09/21/16) Irregular menstrual bleeding (~11/19/15) Iron deficiency anemia (~11/19/15) Menometrorrhagia (~05/18/16) Irregular menstruation, unspecified (~05/18/16) Depression (~05/27/17) Chronic fatigue (~11/19/15) Cyst of left ovary (~11/19/15) Anxiety Asthma Patient : No Family History Family History Mother Colon cancer Colonic polyp Paternal Aunt Breast cancer Maternal Uncle Prostate CA Family history of problems with anesthesia: No Surgical History Surgical History H/O tubal ligation History of Problems with Anesthesia: No Social History Social History Household Members: Spouse, Significant Other and Family Housing: House Patient Tobacco Use Status: Never used Tobacco Are you DNR?: No Advance Directives: No Advance Directives Information Provided: Yes Recently lost weight without trying: No Nutrition Risks: No Nutritional Risk Patient : No FDLMP: last mth service: No Current occupational status: employed Meds Allergies Allergy/AdvReac Type Severity Reaction Status Date / Time varicella virus vaccine live Allergy Unknown ITCHING,FABIAN Verified 04/07/23 09:49 [VARICELLA VIRUS VACCINE SEA,HEADACH LIVE] E Active Medications: Current Medications Lactated Ringer's (Lr) 1,000 mls @ 50 mls/hr IVCONT .Q20H BEN Last Admin: 04/09/23 08:09 Dose: 50 mls/hr Home Medications Medication Instructions Recorded Confirmed Last Taken Type ascorbic acid (vitamin C) 250 mg 250 mg PO QAM 04/06/23 Unknown History tablet psyllium husk (aspartame) 3 ea PO BID 04/06/23 Unknown History gram/5.8 gram oral powder (Reguloid (aspartame)) Exam Height,Weight and Vital Signs: Height 5 ft 7 in Weight 89.811 kg Last Vital Signs Temp 97 F 04/09/23 07:46 Pulse 72 04/09/23 07:46 Resp 18 04/09/23 07:46 BP 129/78 04/09/23 07:46 Pulse Ox 99 04/09/23 07:46 O2 Del Method Room Air 04/09/23 07:46 Pertinent Lab Results Pertinent Lab Results: Laboratory Tests 04/09/23 07:34 Urine Test NEGATIVE Airway Mallampati Class: II TM Dist: >3cm Neck ROM: Full Loose/Missing/Broken Teeth: No Heart: ok Lungs: ok Assessment and Plan Assessment Anesthesia Assessment: Anesthesia Plan Discussed Final Anesthetic Review Family History of Problems with Anesthesia: No History of Problems with Anesthesia: No NPO: Yes ASA Class: II Final Preanesthetic Review: No Changes in Pt Med Stat, Meds/Allgs Chart Reviewed, Consent Obtained/Reviewed and Anes Risks/Benef Reviewed Patient Risk: Low Procedure Risk: Low Anesthetic Plan Anesthetic Plan: GA and Agree w/ Assess. and Plan Disposition: Standard PACU
--- NOTE | 2023-04-09 08:55 | MHC.SHP ---
Pre-Procedural Eval Section A - 24 Hr Update-Section A only Date of Service: 04/09/23 The patient is an INPATIENT: No Changes since office visit: No Cold of Flu in the past 2 weeks, No New Medical Problems, No Changes in Medication and No Patient answered all questions The patient has been examined within 24 hours of the surgical procedure. The History & Physical has been completed within 30 days and I have reviewed it.: Yes Section B - Complete if H&P > 30 days Chief Complaint: Abnormal uterine and vaginal bleeding, unspecified Allergies: Allergies Allergy/AdvReac Type Severity Reaction Status Date / Time varicella virus vaccine live Allergy Unknown ITCHING,FABIAN Verified 04/07/23 09:49 [VARICELLA VIRUS VACCINE SEA,HEADACH LIVE] E Plan Diagnosis/Plan: Unchanged I have reviewed the history and physical and performed a pertinent physical examination on my patient. No changes have occurred unless specified. Time Spent With Patient Time: Total time managing care of this patient today ____ minutes.
[2023-04-09 10:00] VITALS: BP 105/60; PULSE 69; RESP 14; TEMP 36.8; O2SAT 94
[2023-04-09 10:05] VITALS: BP 109/62; PULSE 67; RESP 16; O2SAT 97
[2023-04-09 10:10] VITALS: BP 111/70; PULSE 62; RESP 16; O2SAT 98
[2023-04-09] MEDS: oxyCODONE HCl Immed Release 5 MG TABLET PO (10:13)
[2023-04-09 10:15] VITALS: BP 115/73; PULSE 65; RESP 16; TEMP 36.4; O2SAT 98
[2023-04-09 10:30] VITALS: BP 119/61; PULSE 61; RESP 16; TEMP 36.5; O2SAT 99
--- NOTE | 2023-04-09 10:32 | PM.OP ---
Brief Operative Note Date of Service: 04/09/23 Pre-op diagnosis: Abnormal uterine bleeding Post-op diagnosis: same Procedure: [facility]Sure Endometrial Ablation Surgeon: Beto Benavidez MD Anesthesia: MAC Was an Quality Assurance Lab Technician used for this Procedure?: No Estimated blood loss (mL): 0 Pathology: none sent Condition: stable Disposition: PACU
--- NOTE | 2023-04-09 10:33 | P.OP_ITS ---
Operative Note Operative Note Date of Service: 04/09/23 Narrative: Preop diagnosis: Abnormal uterine bleeding with significant anemia status post 2 units of packed RBCs Post Op Diagnosis: Same Op: Novasure Endometrial Ablation Anesthesia: GLMA Remediation Project Engineer: None QBL: Minimal Pathology: None Complications: None Procedure: The patient was put in the dorsal lithotomy position. She was prepped and draped in the usual sterile manner. Bimanual exam prior to prepping revealed a mobile, anteverted uterus. A speculum was placed in the vagina and the anterior lip of the cervix was grasped with a single toothed tenaculum and brought forward. Taking care not to enter deep into the uterus, a sound was passed inside to measure the length of the uterus and cervix. This length was found to be 8 cm. Next, Hegar dilator was inserted into the cervical os to measure the cervical length which was 3 cm. This yielded an endometrial cavity length of 6.5 cm. A series of Hegar dilators were then inserted sequentially into the cervical os up to a size of 5 mm. The Novasure device was then opened and tested; the fan deployed easily. The instrument was set to the correct cavity length and introduced into the uterine cavity. The fan was slowly deployed with gentle movements to ensure a snug fit within the cavity. The cavity width read 4.5 cm. The measurements were imported and a cavity check was done. The trumpet was then slid down to the cervix and the device was activated. The total burn time was 91 seconds. The fan was retracted and device removed. The fan was examined and revealed charred tissue. The tenaculum was removed and the cervix examined for hemostasis which was achieved using pressure. Finally the speculum was removed. The patient tolerated the procedure well and was brought to the recovery room in a stable condition. At the end of the procedure all sponges and instruments were counted and correct. The blood loss was minimal and there were no complications.
== END 2023-04-09 11:07 | disposition home or self-care (01) ==
PROVIDERS: PCP Internal Medicine Geriatric Medicine; Visit Provider Obstetrics & Gynecology
PROC: (CPT 58563; principal; 2023-04-09 09:30)
DX: N93.9 Abnormal uterine and vaginal bleeding, unspecified (principal); D50.9 Iron deficiency anemia, unspecified; N92.6 Irregular menstruation, unspecified; N83.202 Unspecified ovarian cyst, left side; D25.9 Leiomyoma of uterus, unspecified; R53.82 Chronic fatigue, unspecified; J45.909 Unspecified asthma, uncomplicated; G43.909 Migraine, unspecified, not intractable, without status migrainosus; Z98.51 Tubal ligation status; Z88.7 Allergy status to serum and vaccine
CPT/HCPCS: 58563; 81025; J1885; J2405; J2704; J3010

== ENCOUNTER → 2023-04-09 06:55 | Outpatient (BNV) | payer MEDICAID, SELFPAY | PROVIDERS: PCP Internal Medicine Geriatric Medicine; Visit Provider Obstetrics & Gynecology | DX: N93.9 Abnormal uterine and vaginal bleeding, unspecified (principal) | CPT/HCPCS: 58563 ==

== ENCOUNTER 2023-04-21 10:25 | Outpatient (REF) | payer MEDICAID, SELFPAY ==
[2023-04-21 12:07] LABS: Hematocrit 33.4 % (37.0-47.0); Hemoglobin 10.2 g/dl (12.0-16.0); Mean Corpuscular HGB Conc 30.5 g/dl (31.0-35.0); Mean Corpuscular Hemoglobin 19.3 pg (27.0-33.0); Platelet Count 348 X10*3/uL (160-400); Red Blood Count 5.28 X10*6/uL (4.20-5.50); Red Cell Distribution Width 30.3 % (11.0-16.0); White Blood Count 5.9 X10*3/uL (4.8-10.8)
[2023-04-21 12:08] LABS: Mean Corpuscular Volume 63.3 fL (80.0-98.0)
== END 2023-04-21 10:26 | disposition home or self-care (01) ==
LOC: HO.LAB 10:25
PROVIDERS: PCP Internal Medicine Geriatric Medicine; Visit Provider Obstetrics & Gynecology
DX: N93.9 Abnormal uterine and vaginal bleeding, unspecified (principal)
CPT/HCPCS: 36415; 85027; 99212

== ENCOUNTER 2023-04-21 10:25 | Outpatient (AMB) | payer MEDICAID, SELFPAY ==
--- NOTE | 2023-04-21 10:26 | MHC.OFFVIS ---
Intake Vital Signs 04/21/23 10:28 Height 5 ft 7 in Weight 195 lb BMI 30.5 BP 126/70 Intake Visit Reasons: post op Auto Transmission Mechanic Required: Yes Auto Transmission Mechanic Language: Spiral Winder Name: Maricarmen ROBERSON Information Interpreted: non-clinical & clinical Accompanied by: Self / Same As Patient Allergies varicella virus vaccine live [VARICELLA VIRUS VACCINE LIVE] Allergy (Unknown, Verified 04/21/23 10:30) ITCHING,NAUSEA,HEADACHE Is last menstrual period known: No (Ablation) HPI HPI Comments History of Present Illness Details The patient is presenting post Novasure Endometrial Ablation. No complaints minimal vaginal bleeding no feverishness chills or abdominal pain. [facility]MERLY [facility] Medical History Nonintractable migraine (~09/21/16) Irregular menstrual bleeding (~11/19/15) Iron deficiency anemia (~11/19/15) Menometrorrhagia (~05/18/16) Irregular menstruation, unspecified (~05/18/16) Depression (~05/27/17) Chronic fatigue (~11/19/15) Cyst of left ovary (~11/19/15) Anxiety Asthma Surgical History H/O tubal ligation Family History Mother Colon cancer Colonic polyp Paternal Aunt Breast cancer Maternal Uncle Prostate [place] Social History Household Members: Spouse, Significant Other and Family Housing: House Patient Tobacco Use Status: Never used Tobacco service: No Current occupational status: employed Female Reproductive History Menstrual Age of Menarche: 9 Review of Systems Const All systems reviewed & are unremarkable except as noted in HPI and below Reports as per HPI and Reports no additional complaints GI Reports no additional complaints Reports no additional complaints Physical Exam Vital Signs: Last Vital Signs BP 126/70 04/21/23 10:28 BMI result Body Mass Index 30.5 Assessment & Plan Assessment & Plan (1) Abnormal uterine bleeding (AUB): Comment: With anemia status post 2 units of blood transfused Myoma Code(s): N93.9 - Abnormal uterine and vaginal bleeding, unspecified Plan: CBC to be repeated. The patient is scheduled for iron transfusion with Hematology Discussed with the patient Novasure endometrial ablation intraoperative findings. In addition, discussed with the patient the expectations in the post operative period. Instruction given to patient to wait 2- 3 months and call if her menses are not satisfactory. Also discussed with the patient that although NovaSure endometrial ablation decreases the risk of , it is certainly not a method of control. All questions answered, the patient verbalized understanding and all questions answered . Coding Level of Care Code Est Pt Level 3 (92157) Diagnoses Abnormal uterine bleeding (AUB) N93.9
[2023-04-21 10:28] VITALS: BP 126/70; BMI 30.5
== END 2023-04-21 11:42 | disposition home or self-care (01) ==
LOC: HO.HWS 10:25
PROVIDERS: PCP Internal Medicine Geriatric Medicine; Visit Provider Obstetrics & Gynecology
DX: N93.9 Abnormal uterine and vaginal bleeding, unspecified (principal)
CPT/HCPCS: 99213

== ENCOUNTER 2023-05-12 15:13 | Outpatient (REF) | payer MEDICAID, SELFPAY | END 2023-05-12 15:14 | disposition home or self-care (01) | LOC: HO.MAMMO 15:13 | PROVIDERS: PCP Student in an Organized Health Care Education/Training Program; Visit Provider Obstetrics & Gynecology | DX: Z12.31 Encounter for screening mammogram for malignant neoplasm of breast (principal) | CPT/HCPCS: 77063; 77067 ==

== ENCOUNTER → 2023-05-12 16:00 | Outpatient (BNV) | payer MEDICAID, SELFPAY | PROVIDERS: PCP Student in an Organized Health Care Education/Training Program; Visit Provider Radiology Diagnostic Radiology | DX: Z12.31 Encounter for screening mammogram for malignant neoplasm of breast (principal) | CPT/HCPCS: 77063; 77067 ==

== ENCOUNTER 2023-06-09 15:31 | Outpatient (AMB) | payer MEDICAID, SELFPAY ==
--- NOTE | 2023-06-09 15:47 | A.OFFVIS_ITS ---
Intake Vital Signs 06/09/23 15:51 Height 5 ft 7 in Weight 194 lb 0.108 oz BMI 30.4 BP 122/70 Intake Visit Reasons: HAND THERMAL CUTTER annual exam Leather Staker Required: Yes Leather Staker Language: Applications Programmer Analyst Name: Maricarmen ROBERSON Information Interpreted: non-clinical & clinical Cigarette Examiner: Cigarette Examiner Present (Maricarmen ROBERSON) Accompanied by: Spouse Allergies varicella virus vaccine live [VARICELLA VIRUS VACCINE LIVE] Allergy (Unknown, Verified 06/09/23 15:52) ITCHING,NAUSEA,HEADACHE Is last menstrual period known: Yes Last menstrual period: 06/09/23 HPI HPI Comments History of Present Illness Details Presenting for annual exam. No complaints. Last Pap/HPV was negative in 05/01 Last Mammogram was BI-RADS 1 in 05/29 Last screening colonoscopy was few months ago, the patient reports that the recommendation was to repeat in 10 years FORMERLY [facility] Medical History Nonintractable migraine (~09/21/16) Irregular menstrual bleeding (~11/19/15) Iron deficiency anemia (~11/19/15) Menometrorrhagia (~05/18/16) Irregular menstruation, unspecified (~05/18/16) Depression (~05/27/17) Chronic fatigue (~11/19/15) Cyst of left ovary (~11/19/15) Anxiety Asthma Surgical History H/O tubal ligation Family History Mother Colon cancer Colonic polyp Paternal Aunt Breast cancer Maternal Uncle Prostate [place] Social History Household Members: Spouse, Significant Other and Family Housing: House Patient Tobacco Use Status: Never used Tobacco service: No Current occupational status: employed Female Reproductive History Menstrual Age of Menarche: 9 Date of last menstrual period: 06/09/23 control method: permanent sterilization Total pregnancies: 3 Full term: 3 Number of Living Children: 3 Date of last pap smear: 04/08/23 Date of Mammogram: 05/12/23 Review of Systems Const All systems reviewed & are unremarkable except as noted in HPI and below Card Reports as per HPI Resp Reports as per HPI GI Reports as per HPI and Reports no additional complaints Reports as per HPI Physical Exam Vital Signs: BMI result Body Mass Index 30.4 Const General: cooperative, healthy appearing and comfortable Chest Chest palpation & inspection: normal inspection of the chest and normal palpation of entire chest wall Breast/axilla inspection: normal inspection of the breasts and normal inspection of the axillae Breast/axilla palpation: normal palpation of the breasts, normal palpation of the axillae and no axillary lymphadenopathy Resp Effort & Inspection: normal respiratory effort Auscultation: clear to auscultation bilaterally Percussion: percussion normal Cardio Palpation: normal PMI Rate: regular rate Rhythm: regular rhythm Heart sounds: no murmurs and no rubs Peripheral pulses: Peripheral pulses 2+ throughout GI Inspection: Yes normal to inspection Palpation (GI): Soft to palpation, nontender, no guarding, not rigid and No hepatosplenomegaly present Percussion: Yes normal to percussion Auscultation: normal bowel sounds Rectal Exam - Female: deferred General: Yes bladder normal to palpation External Female Exam: No lesion Speculum Exam - Vagina: normal appearance of the vagina, normal palpation, normal vaginal discharge and not erythematous Speculum Exam - Cervix: normal appearance of the cervix and normal palpation Bimanual exam- vagina & uterus: normal bimanual exam, normal palpation, uterine size normal, bladder normal to palpation, consistency normal and normal palpation Bimanual Exam- Adnexa, other: normal adnexae, no masses and no tenderness Assessment & Plan Assessment & Plan (1) Well woman exam: Code(s): Z01.419 - Encounter for gynecological examination (general) (routine) without abnormal findings Plan: Cotesting not indicated this year. Instructions given to patient to schedule her next screening Mammogram in 05/30. Counseled the patient about the recommended dietary allowance of 1000 mg of Calcium & 600 IU of vitamin D. The patient was instructed to perform monthly self-breast exams and to schedule an annual exam in a year; All questions answered and the patient verbalized understanding. Instructed the patient to schedule annual exam in a year Orders: Referrals Gastroenterology Referral Z12.11 - Encounter for screening for malignant neoplasm of colon Coding Level of Care Code Est Pt Prev Care 40-64y(98554) Diagnoses Well woman exam Z01.419
[2023-06-09 15:51] VITALS: BP 122/70; BMI 30.4
== END 2023-06-09 16:04 | disposition home or self-care (01) ==
LOC: HO.HWS 15:31
PROVIDERS: PCP Internal Medicine Geriatric Medicine; Visit Provider Obstetrics & Gynecology
DX: Z01.419 Encounter for gynecological examination (general) (routine) without abnormal findings (principal)
CPT/HCPCS: 99396

== ENCOUNTER → 2023-06-09 15:31 | Outpatient (BNVA) | payer MEDICAID, SELFPAY | PROVIDERS: PCP Internal Medicine Geriatric Medicine; Visit Provider Obstetrics & Gynecology | DX: Z01.419 Encounter for gynecological examination (general) (routine) without abnormal findings (principal) | CPT/HCPCS: 99396 ==

== ENCOUNTER 2023-06-18 10:42 | Outpatient (REF) | payer MEDICAID, SELFPAY ==
[2023-06-21 21:44] LABS: TS Negative Control Passed; TS Panel A 0; TS Panel B 0; TS Positive Control Passed; TSpotTB Negative (Negative)
== END 2023-06-18 10:43 | disposition home or self-care (01) ==
LOC: HO.HHCL 10:42
PROVIDERS: Visit Provider Internal Medicine Geriatric Medicine
DX: Z11.1 Encounter for screening for respiratory tuberculosis (principal)
CPT/HCPCS: 36415; 86481

== ENCOUNTER 2023-12-22 17:27 | Emergency (ER) | payer MEDICAID, SELFPAY ==
--- NOTE | ~2023-12-22 | XR_ITS ---
EXAMINATION: XR LUMBOSACRAL SPINE CLINICAL INFORMATION: Lower back pain without injury. COMPARISON: None available. TECHNIQUE: AP and lateral views of the lumbar spine and lateral view of the lumbosacral junction. FINDINGS: There is bony demineralization. There is a slight upper lumbar rotatory levoscoliosis. The lower thoracic and lumbar disc spaces are well-maintained. No acute fracture or spondylolisthesis is seen. The posterior elements are intact. The paravertebral soft tissues are unremarkable. XR/XR lumbar spine 2-3V IMPRESSION: 1. No acute fracture or spondylolisthesis is seen. 2. The lower thoracic and lumbar disc spaces are well-maintained. 3. There is a slight upper lumbar rotatory levoscoliosis. Electronically signed by: Pablito Falk MD 12/22/2023 09:56 PM EDT RP
[2023-12-22 17:59] VITALS: BP 145/85; PULSE 80; RESP 19; TEMP 36.6; O2SAT 98; BMI 33.6
--- NOTE | 2023-12-22 18:04 | ED_ITS ---
HPI - Back Pain/Injury General Chief Complaint: Back Pain/Injury Stated Complaint: low back pain Related Data Previous Rx's ?Medication ?Instructions ?Recorded ibuprofen 800 mg tablet 800 mg PO Q8H PRN pain #20 tabs 06/24/20 Allergies Allergy/AdvReac Type Severity Reaction Status Date / Time varicella virus vaccine live Allergy Unknown ITCHING,FABIAN Verified 12/22/23 18:01 [VARICELLA VIRUS VACCINE SEA,HEADACH LIVE] E PMFSH Past Medical History Medical History Nonintractable migraine (~09/21/16) Irregular menstrual bleeding (~11/19/15) Iron deficiency anemia (~11/19/15) Menometrorrhagia (~05/18/16) Irregular menstruation, unspecified (~05/18/16) Depression (~05/27/17) Chronic fatigue (~11/19/15) Cyst of left ovary (~11/19/15) Anxiety Asthma Surgical History H/O tubal ligation Family History Family History Mother Colon cancer Colonic polyp Paternal Aunt Breast cancer Maternal Uncle Prostate [place] Social History Social History Household Members: Spouse, Significant Other and Family Housing: House Patient Tobacco Use Status: Never used Tobacco Advance Directives: No Advance Directives Information Provided: No Do you have a plan to hurt others: No Plan service: No Current occupational status: employed Physical Exam 2 Vital Signs: Vital Signs: Last Vital Signs Temp 98 F 12/22/23 17:59 Pulse 80 12/22/23 17:59 Resp 19 12/22/23 17:59 BP 145/85 H 12/22/23 17:59 Pulse Ox 98 12/22/23 17:59 O2 Del Method Room Air 12/22/23 17:59 BMI result Body Mass Index 33.6 Course Course Course Narrative: This is a Rapid Medical Examination (RME) performed by Kylah Patel PA-C in triage. Full HPI, ROS, assessment and treatment plan per primary provider in the Main ED. 43 yo female here for eval of atraumatic low back pain x3 days with intermittent tingling down LEs. taking motrin 800mg w/o improvement. no injury/ trauma. denies fever, chills, n/v, flank pain, dysuria, hematuria. no hx of IVDU. no bowel/ bladder incontinence or retention, saddle anesthesia. + no midline spinous tenderness or step off deformity. Plan: labs, UA, xr Reevaluation(s) Reevaluation #1: Patient left the emergency department before myself or any of the other clinicians could review or explain physical exam findings, test results, need or lack there of for additional testing, treatment options, or a treatment plan. Medical Decision Making Lab Data 12/22/23 18:38 12/22/23 18:38 Labs: Lab Results 12/22/23 12/22/23 Range/Units 18:38 19:18 WBC 7.1 (4.8-10.8) X10*3/uL RBC 4.67 (4.20-5.50) X10*6/uL Hgb 13.3 (12.0-16.0) g/dl Hct 39.3 (37.0-47.0) % MCV 84.2 (80.0-98.0) fL MCH 28.5 (27.0-33.0) pg MCHC 33.8 (31.0-35.0) g/dl RDW 12.4 (11.0-16.0) % Plt Count 255 (160-400) X10*3/uL MPV 11.0 (9.4-12.3) fL Immature Gran % (Auto) 0.3 (0.0-0.4) % Neut % (Auto) 58.1 (45-73) % Lymph % (Auto) 30.4 (20-40) % [place] % (Auto) 8.2 (2-11) % Eos % (Auto) 2.4 (0-4) % Baso % (Auto) 0.6 (0-2) % Lymph # (Auto) 2.2 (1.2-4.9) X10*3/uL [place] # (Auto) 0.6 (0.1-1.2) X10*3/uL Eos # (Auto) 0.2 (0.0-0.4) X10*3/uL Baso # (Auto) 0.0 (0.0-0.2) X10*3/uL Abs Immat Gran (auto) 0.02 (0.00-0.03) X10*3/uL Absolute Neuts (auto) 4.1 (2.0-8.3) x10*3/uL Absolute Nucleated RBC 0.000 (0.0-0.012) X10*3/uL Nucleated RBC % (auto) 0.0 (0.0-0.2) /100WBC Sodium 142 (135-145) mmol/L Potassium 4.1 (3.3-5.1) mmol/L Chloride 107 (96-108) mmol/L Carbon Dioxide 27 (22-29) mmol/L Anion Gap 12 (12-20) BUN 13 (9-16) mg/dL Creatinine 0.99 (0.5-1.4) mg/dL Estim Creat Clear Calc 80.2 Estimated GFR > 60 Random Glucose 98 (60-115) mg/dL Calcium 9.8 D (8.4-10.2) mg/dL Total Bilirubin 0.2 (0.0-1.0) mg/dL AST 15 (5-31) U/L ALT 16 (0-31) U/L Alkaline Phosphatase 69 (39-117) U/L Total Protein 8.3 H (6.5-8.0) g/dL Albumin 4.5 (3.5-5.0) g/dL Urine Color Yellow Urine Appearance Clear Urine pH 6.5 (5.0-9.0) Ur Specific Donie 1.015 (1.005-1.025) Urine Protein Negative (Neg-Trace) mg/dL Urine Glucose (UA) Negative (Negative) mg/dL Urine Ketones Negative (Negative) mg/dL Urine Blood Negative (Negative) Urine Nitrite Negative (Negative) Ur Leukocyte Esterase Negative (Negative) Discharge Plan Discharge Clinical Impression: Acute lumbar back pain Patient Disposition: Left W/O Completing Treatment Prescriptions: No Action ibuprofen 800 mg tablet 800 mg PO Q8H PRN (Reason: pain) Qty: 20 0RF Discharge Date/Time: 12/22/23 21:40
[2023-12-22 18:43] LABS: MANUAL DIFF FLAG NO
[2023-12-22 18:54] LABS: Basophils Percent Auto 0.6 % (0-2); Eosinophils Absolute Auto 0.2 X10*3/uL (0.0-0.4); Eosinophils Percent Auto 2.4 % (0-4); Hematocrit 39.3 % (37.0-47.0); Hemoglobin 13.3 g/dl (12.0-16.0); Imm Gran Abs Auto 0.02 X10*3/uL (0.00-0.03); Imm Gran Pct Auto 0.3 % (0.0-0.4); Lymphocytes Absolute Auto 2.2 X10*3/uL (1.2-4.9); Lymphocytes Percent Auto 30.4 % (20-40); Mean Corpuscular HGB Conc 33.8 g/dl (31.0-35.0); Mean Corpuscular Hemoglobin 28.5 pg (27.0-33.0); Mean Corpuscular Volume 84.2 fL (80.0-98.0); Monocytes Absolute Auto 0.6 X10*3/uL (0.1-1.2); Monocytes Percent Auto 8.2 % (2-11); Neutrophils Absolute Auto 4.1 x10*3/uL (2.0-8.3); Neutrophils Percent Auto 58.1 % (45-73); Platelet Count 255 X10*3/uL (160-400); Red Blood Count 4.67 X10*6/uL (4.20-5.50); Red Cell Distribution Width 12.4 % (11.0-16.0); White Blood Count 7.1 X10*3/uL (4.8-10.8)
[2023-12-22 19:00] LABS: Alanine Aminotransferase 16 U/L (0-31); Albumin Level 4.5 g/dL (3.5-5.0); Alkaline Phosphatase 69 U/L (39-117); Anion Gap 12 (12-20); Aspartate Amino Transferase 15 U/L (5-31); Bilirubin Total 0.2 mg/dL (0.0-1.0); Blood Urea Nitrogen 13 mg/dL (9-16); Calcium 9.8 mg/dL (8.4-10.2); Carbon Dioxide 27 mmol/L (22-29); Chloride 107 mmol/L (96-108); Creatinine Clr Calc Pharmacy 80.2; Estimated Glomerular Filt Rate > 60; Glucose Random 98 mg/dL (60-115); Potassium 4.1 mmol/L (3.3-5.1); Sodium 142 mmol/L (135-145); Total Protein 8.3 g/dL (6.5-8.0)
[2023-12-22 19:28] LABS: Appearance Urine Clear; Color Urine Yellow; Glucose Urine UA Negative (Negative); Leukocyte Esterase Urine Negative (Negative); Nitrite Urine Negative (Negative); PH 6.5 (5.0-9.0); Specific Gravity - Urine 1.015 (1.005-1.025); Urine Blood Negative (Negative); Urine Ketones Negative (Negative); Urine Protein Negative (Neg-Trace)
--- NOTE | 2023-12-22 21:37 | PC.NURSE ---
Patient LWCT patient at this time still has not been picked up by proider after 2 hr and 40min in room, wishes to no longer wait to be picked up by a provider. terra cotta mold maker aware.
== END 2023-12-22 21:40 | disposition left against medical advice (07) ==
PROVIDERS: Physician Assistant Medical; Emergency Provider Emergency Medicine
DX: M54.50 Low back pain, unspecified (principal)
CPT/HCPCS: 36415; 72100; 80053; 81003; 85025; 99283; 99284

== ENCOUNTER 2024-02-22 14:32 | Outpatient (REF) | payer MEDICAID, SELFPAY ==
[2024-02-22 16:39] LABS: Alanine Aminotransferase 19 U/L (0-31); Albumin Level 4.3 g/dL (3.5-5.0); Alkaline Phosphatase 61 U/L (39-117); Anion Gap 7 (12-20); Aspartate Amino Transferase 18 U/L (5-31); Bilirubin Total 0.3 mg/dL (0.0-1.0); Blood Urea Nitrogen 11 mg/dL (9-16); Calcium 8.9 mg/dL (8.4-10.2); Carbon Dioxide 27 mmol/L (22-29); Chloride 107 mmol/L (96-108); Estimated Glomerular Filt Rate > 60; Glucose Random 118 mg/dL (60-115); Potassium 3.3 mmol/L (3.3-5.1); Sodium 138 mmol/L (135-145)
[2024-02-22 16:45] LABS: Estimated Average Glucose 111 mg/dL; Hemoglobin A1C 122.5594 umol/L; Hemoglobin A1c % 5.5 % (<6.0); Total Hemoglobin (HGBA1C) 3372.9475 umol/L
[2024-02-22 16:56] LABS: TSH reflex Free T4 2.21 uIU/mL (0.32-4.0)
[2024-02-23 08:18] LABS: HIV AB/AG Nonreactive (Nonreactive); HIV Num 1 0.05 S/CO (0.00-0.99); ~HepC Num1 0.11 S/CO (0.00-0.79); ~Hepatitis C Antibody Nonreactive (Nonreactive)
== END 2024-02-22 14:33 | disposition home or self-care (01) ==
LOC: HO.HHCL 14:32
PROVIDERS: Visit Provider Internal Medicine Geriatric Medicine
DX: R63.5 Abnormal weight gain (principal); Z11.59 Encounter for screening for other viral diseases; Z11.4 Encounter for screening for human immunodeficiency virus [HIV]
CPT/HCPCS: 36415; 80053; 83036; 84443; 86803; 87389

== ENCOUNTER 2024-05-25 14:37 | Outpatient (REF) | payer MEDICAID, SELFPAY ==
--- OUTSIDE RECORDS SUMMARY | 2024-05-25 17:16 | XMS_ITS | Encounter Summary ---
Author Organization [employer] Address [address] [place] [address] 7 [place] [address] Care Team Providers Care Diabetes Physician Name Role Phone Name, Jadiel MCGARRY Primary Care Provider [phone] Reason for Visit * Reason Onset Date Comments Returning Call Back 07/15/2022 Encounter Details Date Type Department Care Team (Late st Contact Info) Description 07/15/2022 Telephone [facility] MEDICINE [address], [place] [phone] Name, MD Jadiel [address] [place] [address] Returning Call Back Social History Tobacco Use Types Packs/Day Years Used Date Smoking Tobacco: Never Passive Smoke Exposure: Never Smokeless Tobacco: Never Depression Answer Date Recorded Patient Health Questionnaire-9 Score 10 07/15/2022 Depression Answer Date Recorded Patient Health Questionnaire-2 Score 2 07/15/2022 Comments Unknown Sex and Gender Information Value Date Recorded Sex Assigned at Female 01/05/2022 10:30 AM EDT Legal Sex Female 10:30 AM EDT Gender Identity Female 01/05/2022 10:30 AM EDT Sexual Orientation Straight 01/05/2022 10 :30 AM EDT COVID-19 Exposure Response Date Recorded In the last 10 days, have yo u been in contact with someone who was confirmed or suspected to have Coronavirus/COVID-19? No / Unsure 07/15/2022 1:53 PM EDT documented as of this encounter Miscellaneous Notes * Telephone Encounter - Tia Bennett RN - 07/15/2022 3:51 PM EDT Pt was seen this pm for sick appt. No team RN's called pt. * Telephone Encounter - Mirna Matias - 07/15/2022 3:09 PM EDT Tc from patient returning call back, states she has 5 missed calls. Manager Staffing didn't see any notes. documented in this encounter Plan of Treatment Upcoming Encounters Date Type Department Care Team (Late st Contact Info) Description 06/19/2024 10:00 AM EDT Office Visit [facility] MEDICINE [address] [place] [address] Name, MD Jadiel [address] [place] [address] documented as of this encounter Visit Diagnoses Not on filedocumented in this encounter Additional Health Concerns Assessment Noted Time PHQ-9 Depression Total Score: 10 023 2:07 PM EDT documented as of this encounter Care Teams Diabetes Physician Relationship Specialty Start Date End Date Name, MD Jadiel [address] [place] [id number] PCP - General Family Medicine 11/19/15 documented as of this encounter
--- OUTSIDE RECORDS SUMMARY | 2024-05-25 17:16 | XMS_ITS | Encounter Summary ---
Author Organization [employer] Address [address] [facility] [address] [place] [address] Care Team Providers Care Child Care Cook Name Role Phone Name, Jadiel MCGARRY Primary Care Provider [phone] Encounter Details Date Type Department Care Team ([facility] st Contact Info) Description 05/06/2024 Orders Only [facility] [address] [place] [address] ProviderJacqueline MD Social History Tobacco Use Types Packs/Day Years Used Date Smoking Tobacco: Never Passive Smoke Exposure: Never Smokeless Tobacco: Never Alcohol Use Standard Drinks/Week Comments Never 0 (1 standard drink = 0.6 oz pur e alcohol) Depression Answer Date Recorded Patient Health Questionnaire-9 Score 0 06/18/2023 Patient Health Questionnaire-9 Score 0 06/18/2023 Last PHQ-9: Questionnaire Data Not on file 0 06/18/2023 Housing Stability Answer Date Recorded What is your housing situation today? I have alonzo aguilar 02/09/[address] you li ve. Do you have problems with any of the following? None of the above 02/09/2024 Food Insecurity Answer Date Recorded Within the past 12 months, y ou worried that your food would run out before you got money to buy more: Never True 02/09/2024 Within the past 12 months,th e food you bought just didn't last and you didn't have enough money to get more: Never True 06/2023 Transportation Answer Date Recorded In the past 12 months, has l ack of transportation kept you from medical appts, meetings, work or from getting things needed for daily living? No 02/09/2024 Utilities Answer Date Recorded In the past 12 months, has t he electric, gas, oil or water company threatened to shut off services in your home? No 02/09/2024 Depression Answer Date Recorded Patient Health Questionnaire-2 Score 0 06/18/2023 Internet Access Answer Date Recorded Internet Access Q1 Yes 02/09/2024 Internet Access Q2 Not on file 02/09/2024 Comments Unknown Sex and Gender Information Value Date Recorded Sex Assigned at Female 01/05/2022 10:30 AM EDT Legal Sex Female 10:30 AM EDT Gender Identity Female 01/05/2022 10:30 AM EDT Sexual Orientation Straight 01/05/2022 10 :30 AM EDT documented as of this encounter Plan of Treatment Upcoming Encounters Date Type Department Care Team (Late st Contact Info) Description 06/19/2024 10:00 AM EDT Office Visit [facility] MEDICINE [address] [place] [phone] NameJadiel MD [address] [place] [address] documented as of this encounter Procedures Procedure Name Priority Date/Time Associated Diagnosis Comments HM PAP/HPV Routine 04/08/2023 5:48 PM EST documented in this encounter Results * HM PAP/HPV (04/08/2023 5:48 PM EST) Historical Provider HEALTH MAINTENANCE Final Result documented in this encounter Visit Diagnoses Not on filedocumented in this encounter Additional Health Concerns Assessment Noted Time PHQ-9 Depression Total Score: 0 06/18/19 24 9:55 AM EDT documented as of this encounter Care Teams Child Care Cook Relationship Specialty Start Date End Date NameJadiel MD [address] [place] [address] PCP - General Family Medicine 11/19/15 documented as of this encounter
--- OUTSIDE RECORDS SUMMARY | 2024-05-25 17:16 | XMS_ITS | Encounter Summary ---
Author Organization [employer] Address [address] [facility] [address] [place] [address] Care Team Providers Care Separator Inserter Name Role Phone Name, Jadiel MCGARRY Primary Care Provider [phone] Encounter Details Date Type Department Care Team ([facility] st Contact Info) Description 05/19/2024 Population Health Risk Score [facility] (C3) Department [address] [phone] Provider, Population Health Generic Social History Tobacco Use Types Packs/Day Years [...] Description 06/19/2024 10:00 AM EDT Office Visit [facility] MEDICINE [address] [place] [phone] Name, MD Jadiel [address] [place] [address] documented as of this encounter Visit Diagnoses Not on filedocumented in this encounter Additional Health Concerns Assessment Noted Time PHQ-9 Depression Total Score: 0 06/18/19 24 9:55 AM EDT documented as of this encounter Care Teams Separator Inserter Relationship Specialty Start Date End Date NameJadiel MD [address] [place] [phone] PCP - General Family Medicine 11/19/15 documented as of this encounter
--- OUTSIDE RECORDS SUMMARY | 2024-05-25 17:16 | XMS_ITS | Encounter Summary ---
Author Organization [employer] Address [address] [place] [address] Care Team Providers Care Asset Protection Detective Name Role Phone Name, Jadiel MCGARRY Primary Care Provider [phone] Reason for Visit * Reason Onset Date Comments Appointment Request 07/08/2022 Encounter Details Date Type Department Care Team (Late st Contact Info) Description 07/08/2022 Telephone [facility] MEDICINE [address] [place], [place] [phone] Name, MD Jadiel [address] [place] [address] Appointment Request Social History Tobacco Use Types Packs/Day Years Used Date Smoking Tobacco: Never Assessed Comments Unknown Sex and Gender Information Value Date Recorded Sex Assigned at Female 01/05/2022 10:30 AM EDT Legal Sex Female 10:30 AM EDT Gender Identity Female 01/05/2022 10:30 AM EDT Sexual Orientation Straight 01/05/2022 10 :30 AM EDT documented as of this encounter Miscellaneous Notes * Telephone Encounter - Tia Bennett RN - 07/09/2022 4:04 PM EDT TC X1 to pt regarding message below. LVM to return call. Pt has upcoming appt on 07/15/22. * Telephone Encounter - Jojo Ruiz - 07/08/2022 9:24 AM EDT Tc from pt requesting to r/s today appt . Appt details ([facility] 07/05[facility]22 Dx: Atypical chest pain, left facial numbness) documented in this encounter Plan of Treatment Upcoming Encounters Date Type Department Care Team (Late st Contact Info) Description 06/19/2024 10:00 AM EDT Office Visit [facility] MEDICINE [address] [place] [address] Name, MD Jadiel [address] [place] [address] documented as of this encounter Visit Diagnoses Not on filedocumented in this encounter Care Teams Asset Protection Detective Relationship Specialty Start Date End Date Name, MD Jadiel [address] [place] [address] PCP - General Family Medicine 11/19/15 documented as of this encounter
--- OUTSIDE RECORDS SUMMARY | 2024-05-25 17:16 | XMS_ITS | Clinical Summary ---
Author Organization [employer] Address [address] [place] [address] 7t [place] [address] Care Team Providers Care Traffic Control Specialist Name Role Phone Name, Jadiel MCGARRY Primary Care Provider [phone] Allergies Active Allergy Reactions Criticality Noted Date Comments Penicillins 11/19/2015 Other reaction(s): Altered Heart Rate Varicella Virus Vaccine Live 021 Other reaction(s): ITCHING,NAUSEA,HEADACHE Other Reaction(s): ITCHING,NAUSEA,HEADACHE Medications triamcinolone (Kenalog) 0.1 % creamIndication s:Eczema, dyshidrotic Apply topically 2 times daily. 30 g 2 06/18/19 24 Active LORazepam (Ativan) 0.5 MG tablet Take 1 tablet (0.5 mg) by mouth See administration instructions. 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 Referral placed. Atypical chest pain 07/14/2022 Left facial numbness 07/14/2022 Depression 05/27/2017 Migraine 09/21/2016 Menometrorrhagia 05/18/2016 Chronic fatigue syndrome 11/19/2015 Cyst of ovary 11/19/2015 Assessment & Plan (10/27/2022 2:22 PM EDT): -US pelvic/TV 2019:The uterus is anteverted, normal size and echogenicity measuring 9.5 x 5.2 x 6.8 cm. A regular homogeneous endometrium is identified measuring 0.9 cm. The cervix is unremarkable.The left ovary measures 4.2 x 3.7 x 3.7 cm for a volume of 30.1 mL.There are 2 complex cysts seen.1. 2.4 x 2.4 x 2.1 cm and 1.6 x 1.8 x 1.7 cm. There is no pelvic free fluid.Two complex cysts left ovary. -pt request today f up for this findings -referred today for pelvic US/TV -will call pt w result if abnormal to refer back to [employer] if needed Iron deficiency anemia 11/19/2015 Assessment & Plan (10/27/2022 2:24 PM EDT): Noted here last hb was 9.5 in 06/2022 from hx of menorrhagia Pt not tolerated before oral iron and was following w equal opportunity director for IV iron but lost care -repeat CBC today -pt wants to hold on oral iron px -referred back to equal opportunity director today -advised to f w her [employer] Irregular periods 11/19/2015 Left lower quadrant pain 11/19/2015 Resolved Problems Problem Noted Date Diagnosed Date Resolved Date 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 Encounters Date Type Department Care Team Description 05/19/2024 Population Health Risk Score [facility] [address] [place] [address] Provider, Population Health Generic 05/06/2024 Orders Only [facility] [address] [place] [address] Provider, MD Jacqueline from Last 3 Months Immunizations Name Administration Dates Next Due Influenza injectable quadrivalent preservative f ree 01/26/2020 Tdap 09/21/2016 Varicella 09/28/2016 Social History Tobacco Use Types Packs/Day Years Used Date Smoking Tobacco: Never Passive Smoke Exposure: Never Smokeless Tobacco: Never Tobacco Cessation:Counseling Given: Not Answered Alcohol Use Standard Drinks/Week Comments Never 0 [...] Orientation Straight 01/05/2022 10 :30 AM EDT Last Filed Vital Signs Vital Sign Reading Time Taken Comments Blood Pressure 145/97 02/22/2024 1:57 PM EST Pulse 72 02/22/2024 1:57 PM EST Temperature 35.1 ??C (95.1 ??F) 02/22/2024 1:57 PM ES T Respiratory Rate 18 02/22/2024 1:57 PM EST Oxygen Saturation 98% 02/22/2024 1:57 PM EST Inhaled Oxygen Concentration - - Weight 91.6 kg (202 lb) 12/27/2023 3:17 PM EDT Height 165.1 cm (5' 5 ) 02/22/2024 1:57 PM EST Body Mass Index 33.61 12/27/2023 3:17 PM EDT Plan of Treatment Upcoming Encounters Date Type Department Care Team (Late st Contact Info) Description 06/19/2024 10:00 AM EDT Office Visit [facility] [address] [place] [address] Name, MD Jadiel [address] [place] [address] Health Maintenance Due Date Last Done Comments CT Colonography 1978 FIT DNA/Cologuard 1978 FIT 1978 FOBT 1978 Sigmoidoscopy 1978 Family Planning (PISQ) 1993 Hepatitis B Vaccines (1 of 3 - 19+ 3-dose series) 1997 COVID-19 Vaccine ( season) 2023 01/28/2021, 01/07/2021 Influenza Vaccine (#1) 2023 01/26/2020 Colonoscopy 03/30/2024 03/30/2019 Colorectal Cancer Screening 03/30/2024 Depression Screening 06/17/2024 06/18/2023, 06/18/19 Alcohol/Substance Use Screening 09/27/2024 09/28/2023 SDOH Screening 02/08/2025 02/09/2024 Tobacco Screening 02/21/2025 02/22/2024 Mammogram 05/11/2025 05/12/2023, 09/2021, 09/04/2019, Additional history exists DTaP/Tdap/Td Vaccines (2 - Td or Tdap) 09/21/2026 09/21/2016 Lipid Panel 11/13/2026 11/13/2021, 01/30/2020 Zoster Vaccines (1 of 2) 02/16/2028 Cervical Cancer Screening 04/08/2028 HPV/Cotest 04/08/2028 11/09/2018, 09/28/2018 Pap Smear 04/08/2028 04/08/2023 RSV Patients and Patients Aged 60 years or older (1 - 1-dose 75+ series) 2053 HIV Screening Completed 02/22/2024 Hepatitis C Screening Completed 02/22/2024 HIB Vaccines Aged Out No longer eligi ble based on patient's age to complete this topic HPV Vaccines Aged Out No longer eligi ble based on patient's age to complete this topic Hepatitis A Vaccines Aged Out No long er eligible based on patient's age to complete this topic IPV Vaccines Aged Out No longer eligi ble based on patient's age to complete this topic Meningococcal Vaccine Aged Out No neela chetan eligible based on patient's age to complete this topic Pneumococcal Vaccine: Pediatrics (0 to 5 Years) and At-Risk Patients (6 to 49) Years) Aged Out No longer eligible based on patient's age to complete this topic RSV under 20 months Aged Out No longe r eligible based on patient's age to complete this topic Rotavirus Vaccines Aged Out No longer eligible based on patient's age to complete this topic Procedures Procedure Name Priority Date/Time Associated Diagnosis Comments HEPATITIS C AB W/REFL TO HCV RNA, QN, PCR Routine 02/22/2024 2:35 PM EST Need for hepatitis C screening test HIV 1/2 ANTIGEN/ANTIBODY, FOURTH GENERATION W/RFL Routine 02/22/2024 2:35 PM EST Screening for HIV (human immunodeficiency virus) BI MAMMOGRAM SCREENING TOMOSYNTHESIS BILATERAL Routine 05/12/2023 3:30 PM EST PAP/HPV Routine 04/08/2023 5:48 PM EST LIPID PANEL, STANDARD Routine 11/13/2021 11:46 AM EDT COLONOSCOPY Routine 03/30/2019 ZZZ HISTORICAL HPV E6/E7 RFLX MELI 16 18/45 Routine 11/09/2018 10:43 AM EDT from Last 3 Months or Most Recently Relevant to Health Maintenance Results * Hepatitis C Antibody with Reflex to HCV, RNA, Quantitative, Real-Time PCR (02/22/2024 2:35 PM EST) Hepatitis C Antibody Nonreactive Nonreactive [facility] Comment:Antibodies to HCV no t detected; does not exclude early acuteHCV infection. Blood Venous blood specimen / Unknown 02/22/2024 2:35 PM EST 02/22/2024 4:05 PM EST us Jadiel Blake MD LAB BLOOD ORDERABLES Final Resul t Performing Organization Address [facility] Co de Phone Number [facility] [address] [place] [phone] * HIV-1/2 Antigen and Antibodies, Fourth Generation, with Reflexes (02/22/2024 2:35 PM EST) HIV AB/AG Nonreactive Nonreactive [facility] Comment:HIV-1 p24 Ag and/or HIV-1/HIV-2 Ab not detected.A test result that is nonreactive does not exclude thepossibility of exposure to or infection with HIV-1 and/orHIV-2. Nonreactive results in this assay for individualswith prior exposure to HIV-1 and/or HIV-2 may be due toantigen and antibody levels that are below the limit ofdetection of this assay.The [employer] HIV Ag/Ab Combo assay result andsupplemental assay results should be interpreted inconjunction with the patient's clinical presentation,history and other laboratory results. If the results areinconsistent with clinical evidence, additional testing issuggested to confirm the result. Blood Venous blood specimen / Unknown 02/22/2024 2:35 PM EST 02/22/2024 4:05 PM EST us Jadiel Blake MD LAB BLOOD ORDERABLES Final Resul t Performing Organization Address [facility] Co de Phone Number [facility] [address] [place] [phone] * BI Mammogram Screening Tomosynthesis Bilateral (05/12/2023 3:30 PM EST) Anatomical Region Laterality Modality Breast Bilateral Mammography 05/12/2023 3:30 PM EST Narrative 05/24/2023 4:56 AM EDT ? [facility] ? [address] ?[place], [place] [address] ? Mammography Report ? Signed ? Patient: Kim Cook ?MR#: MM ?? [id number] ? : 1980 ?Acct:[id number] ? Age/Sex: 43 / F ?ADM Date: 05/12/23 ? Loc: HO.MAMMO ? Attending Dr: Beto Benavidez MD ? Ordering Physician: Beto Benavidez MD ?Results: 1Negativ ?? e ? Date of Service: 05/12/23 ?Follow Up: 1 Year From Orig ?? inal Mammogram ? Procedure(s): MM tomosynthesis screening BI ?? Accession Number(s): [id number] ? cc: Debra Hernandez MD; Beto Benavidez MD ? EXAMINATION: ?? MM SCREENING DIGITAL BREAST TOMOSYNTHESIS, BILATERAL ? CLINICAL INFORMATION: ? Screening. Asymptomatic. ? COMPARISON: ?? Mammography: This study is compared with prior exams dating back to ?? 2019. ? TECHNIQUE: ?? Digital breast tomosynthesis is performed in both the craniocaudal and ?? mediolateral oblique views along with computer-aided detection (CAD). ?? Synthesized 2D images are generated from the tomosynthesis. ? FINDINGS: ?? The breasts are heterogeneously dense, which may obscure small masses ?? (ACR BI-RADS breast composition Category c). ? There are no significant masses, abnormal calcifications, or other ?? abnormalities. ? MM/MM tomosynthesis screening BI ?? IMPRESSION: ?? No mammographic evidence of malignancy. ? ASSESSMENT: ? BI-RADS BI-RADS 1 - Negative ? RECOMMENDATION: ?? Routine annual mammography screening. ? 1 year F/U ? This examination should not preclude the clinical evaluation of a ?? suspicious palpable abnormality. ? This patient's information was entered into a reminder system with a ?? target due date for their next mammogram. ? Dictated By: ?Silvina Edgar MD ? Signed By: ?<Electronically signed by Silvina Edgar MD in OV> ? 05/24/23 0453 ? DD/ 1530 ? TD/TT: ? Silver Chaser: ? Procedure Note Donjanetteter, Image - 05/24/2023 [place] [facility] [address] [place] [address] Mammography Report Signed Patient: Dwight Coko#: [id number] : 1980Acct:[id number] Age/Sex: 43 / FADM Date: 05/12/23 Loc: HO.MAMMO Attending Dr: Beto Benavidez MD Ordering Physician: Beto Benavidez MDResults: 1Negativ e Date of Service: 05/12/23Follow Up: 1 Year From Orig inal Mammogram Procedure(s): MM tomosynthesis screening BI Accession Number(s): [id number] cc: Debra Hernandez MD; Beto Benavidez MD EXAMINATION: MM SCREENING DIGITAL BREAST TOMOSYNTHESIS, BILATERAL CLINICAL INFORMATION: Screening. Asymptomatic. COMPARISON: Mammography: This study is compared with prior exams dating back to 2019. TECHNIQUE: Digital breast tomosynthesis is performed in both the craniocaudal and mediolateral oblique views along with computer-aided detection (CAD). Synthesized 2D images are generated from the tomosynthesis. FINDINGS: The breasts are heterogeneously dense, which may obscure small masses (ACR BI-RADS breast composition Category c). There are no significant masses, abnormal calcifications, or other abnormalities. MM/MM tomosynthesis screening BI IMPRESSION: No mammographic evidence of malignancy. ASSESSMENT: BI-RADS BI-RADS 1 - Negative RECOMMENDATION: Routine annual mammography screening. 1 year F/U This examination should not preclude the clinical evaluation of a suspicious palpable abnormality. This patient's information was entered into a reminder system with a target due date for their next mammogram. Dictated By: Silvina Edgar MD Signed By: <Electronically signed by Silvina Edgar MD in OV> 05/24/23 0457 DD/ 1530 TD/TT: Silver Chaser: [facility] External Provider IMG BI PROCEDURES Final Result * HM PAP/HPV (04/08/2023 5:48 PM EST) Historical Provider HEALTH MAINTENANCE Final Result * (ABNORMAL) LIPID PANEL, STANDARD (11/13/2021 11:46 AM EDT) Chol/HDLC Ratio 4.2 <5.0 (calc) [facility] Cholesterol, Total 204(H) <200 mg/dL [facility] HDL Cholesterol 49(L) > OR = 50 mg/dL [facility] LDL Cholesterol 129(H) mg/dL (calc) [facility] Comment: Reference range: <100 ?? Desirable range <100 mg/dL for primary prevention; ?? <70 mg/dL for patients with CHD or diabetic patients ?? with > or = 2 CHD risk factors. ?? LDL-C is now calculated using the Leslye ?? calculation, which is a validated novel method providing ?? better accuracy than the Friedewald equation in the ?? estimation of LDL-C. ?? Cristobal ROWELL et al. ANGEL. 2013;310(19): 6762-7664 ?? (http://education.Placecast/faq/TMW799) Non-HDL Cholesterol 155(H) <130 mg/dL (calc) [facility] Comment: For patients with diabetes plus 1 major ASCVD risk ?? factor, treating to a non-HDL-C goal of <100 mg/dL ?? (LDL-C of <70 mg/dL) is considered a therapeutic ?? option. Triglycerides 138 <150 mg/dL [facility] 11/13/2021 11:4 6 AM EDT us Jadiel Blake MD LAB BLOOD ORDERABLES Final Resul t [facility] [address] * (ABNORMAL) Hm Colonoscopy (03/30/2019) Colonoscopy Abnormal(A ) Normal us Jadiel Blake MD HEALTH MAINTENANCE Final Result * HPV E6/E7 RFLX MELI 16 18/45 (11/09/2018 10:43 AM EDT) ADDITIONAL TESTING Not indicated () [facility] Comment: Test Performed by [employer] Bill, [employer] [employer] [facility] [place], [address] [place] [address] Mehrdad Soto M.D., Ph.D., Director of Laboratories , [facility] [id number] HPV 16 RNA Test not performed [facility] HPV 18/45 RNA Test not performed [facility] HPV mRNA E6/E7 Not Detected NOT DETECTED [facility] Comment: This test was performed using the APTIMA(R) HPV Assay ([employer] This assay detects E6/E7 viral messenger RNA (mRNA) from 14 high-risk HPV types (16,18,31,33,35,39,45,51, 52,56,58,59,66,68). For additional information please refer to: http://education.AdTaily.com/faq/UXX900w5 (This link is being provided for informational/ educational purposes only.) The analytical performance characteristics of this assay have been determined by [employer] [place], [place]. The modifications have not been cleared or approved by the FDA. This assay has been validated pursuant to the CLIA regulations and is used for clinical purposes. Please note: ??Effective 11/18/2015, HPV testing will be performed using [employer]'s APTIMA test which targets mRNA. Detecting mRNA instead of DNA, as in older methods, offers significant improvements in specificity. 11/09/2018 10:4 3 AM EDT us Historical Provider MD HISTORICAL/NON ORDERABLE LABS Final Result [facility] [address] from Last 3 Months or Most Recently Relevant to Health Maintenance Insurance C3 HSN PARTIAL Care Teams Traffic Control Specialist Relationship Specialty Start Date End Date Name, MD Jadiel [address] [place] [address] [phone] PCP - General Family Medicine 11/19/15
--- OUTSIDE RECORDS SUMMARY | 2024-05-25 17:16 | XMS_ITS | Encounter Summary ---
Author Organization [employer] Address [address] [place] [address] 7 [place] [address] Care Team Providers Care Buffer Chrome Name Role Phone Name, Jadiel MCGARRY Primary Care Provider [phone] Reason for Visit * Reason Onset Date Comments FYI 04/07/2023 Encounter Details Date Type Department Care Team ([facility] st Contact Info) Description 04/07/2023 Telephone [facility] MEDICINE [address] [place], [place] [phone] Name, MD Jadiel [address] [place] [address] FY Social History Tobacco Use Types Packs/Day Years Used Date Smoking Tobacco: Never Passive Smoke Exposure: Never Smokeless Tobacco: Never Alcohol Use Standard Drinks/Week Comments Never 0 (1 standard drink = 0.6 oz pur e alcohol) Depression Answer Date Recorded Patient Health Questionnaire-9 Score 10 07/15/2022 Housing Stability Answer Date Recorded What is your housing situation today? I have alonzo aguilar 01/11/[address] you li ve. Do you have problems with any of the following? None of the above 01/11/2023 Food Insecurity Answer Date Recorded Within the past 12 months, y ou worried that your food would run out before you got money to buy more: Never True 01/11/2023 Within the past 12 months,th e food you bought just didn't last and you didn't have enough money to get more: Never True 08/2022 Transportation Answer Date Recorded In the past 12 months, has l ack of transportation kept you from medical appts, meetings, work or from getting things needed for daily living? No 01/11/2023 Utilities Answer Date Recorded In the past 12 months, has t he electric, gas, oil or water company threatened to shut off services in your home? No 01/11/2023 Depression Answer Date Recorded Patient Health Questionnaire-2 Score 2 07/15/2022 Comments Unknown Sex and Gender Information Value Date Recorded Sex Assigned at Female 01/05/2022 10:30 AM EDT Legal Sex Female 10:30 AM EDT Gender Identity Female 01/05/2022 10:30 AM EDT Sexual Orientation Straight 01/05/2022 10 :30 AM EDT documented as of this encounter Miscellaneous Notes * Telephone Encounter - Joseph Sancho - 04/07/2023 10:36 AM EST Tc from pt wanting to let pcp know family service caseworker sent pt to ER for a blood transfusion and tomorrow the family service caseworker wants to see her urgently for the results. If any questions please contact [phone]. documented in this encounter Plan of Treatment Upcoming Encounters Date Type Department Care Team (Late st Contact Info) Description 06/19/2024 10:00 AM EDT Office Visit [facility] MEDICINE [address] [place] [phone] Name, MD Jadiel [address] [place] [address] documented as of this encounter Visit Diagnoses Not on filedocumented in this encounter Additional Health Concerns Assessment Noted Time PHQ-9 Depression Total Score: 10 023 2:07 PM EDT documented as of this encounter Care Teams Buffer Chrome Relationship Specialty Start Date End Date Name, MD Jadiel [address] [place] [phone] PCP - General Family Medicine 11/19/15 documented as of this encounter
--- OUTSIDE RECORDS SUMMARY | 2024-05-25 17:16 | XMS_ITS | Clinical Summary ---
Author Organization [facility] Address [address] [place] [address] Care Team Providers Care Cinetechnician Name Role Phone Unavailable Primary Care Provider Unavailabl e Social History Tobacco Use Types Packs/Day Years Used Date Smoking Tobacco: Never Assessed Comments Unknown Sex and Gender Information Value Date Recorded Sex Assigned at Not on file Legal Sex Female 5:40 PM EST Gender Identity Not on file Sexual Orientation Not on file Plan of Treatment Health Maintenance Due Date Last Done Comments Breast Cancer Screening 1978 DTaP,Tdap,and Td Vaccines (1 - Tdap) 1997 Hepatitis B Vaccines (1 of 3 - 19+ 3-dose series) 1997 Cervical Cancer Screening: P ap Smear 1999 COVID-19 Vaccine (2023-2 5 season) 2023 Influenza Vaccine (#1) 2023 HIB Vaccines Aged Out No longer eligi [...] on patient's age to complete this topic MMR Vaccines Aged Out No longer eligi ble based on patient's age to complete this topic Meningococcal ACWY Vaccine Aged Out N o longer eligible based on patient's age to complete this topic Meningococcal B Vacine Aged Out No lo nger eligible based on patient's age to complete this topic Pneumococcal Vaccine: Pediat rics (0 to 5 Years) and At-Risk Patients (6 to 64 Years) Aged Out No longer eligible b ased on patient's age to complete this topic RSV Immunization Patients Un javier 20 months Aged Out No longer eligible b ased on patient's age to complete this topic Varicella Vaccines Aged Out No longer eligible based on patient's age to complete this topic
== END 2024-05-25 14:38 | disposition home or self-care (01) ==
LOC: HO.MAMMO 14:37
PROVIDERS: PCP Internal Medicine Geriatric Medicine; Visit Provider Obstetrics & Gynecology
DX: Z12.31 Encounter for screening mammogram for malignant neoplasm of breast (principal)
CPT/HCPCS: 77063; 77067

== ENCOUNTER → 2024-05-25 15:00 | Outpatient (BNV) | payer MEDICAID, SELFPAY | PROVIDERS: PCP Internal Medicine Geriatric Medicine; Visit Provider Internal Medicine | DX: Z12.31 Encounter for screening mammogram for malignant neoplasm of breast (principal) | CPT/HCPCS: 77063; 77067 ==

== ENCOUNTER 2024-07-07 09:23 | Outpatient (REF) | payer MEDICAID, SELFPAY ==
--- OUTSIDE RECORDS SUMMARY | 2024-07-07 09:59 | XMS_ITS | Encounter Summary ---
Author Organization [employer] Address [address] [place] [address] Care Team Providers Care Puppy Walker Name Role Phone Name, Jadiel MCGARRY Primary Care Provider [phone] Reason for Visit * Reason Onset Date Comments Appointment Request 07/08/2022 Encounter Details Date Type Department Care Team (Late st Contact Info) Description 07/08/2022 Telephone [facility] MEDICINE [address] [place], [place] [phone] Name, MD Jadiel [address] [place] [address] Appointment Request Social History Tobacco Use Types [...] to r/s today appt . Appt details ([facility] ED 07/05/22 Dx: Atypical chest pain, left facial numbness) documented in this encounter Plan of Treatment Not on file documented as of this encounter Visit Diagnoses Not on filedocumented in this encounter Care Teams Puppy Walker Relationship Specialty Start Date End Date Name, MD Jadiel [address] [place] [address] PCP - General Family Medicine 11/19/15 documented as of this encounter
--- OUTSIDE RECORDS SUMMARY | 2024-07-07 09:59 | XMS_ITS | Encounter Summary ---
Author Organization [employer] Address [address] [place] [address] [address] [place] [address] Care Team Providers Care Boat Garnisher Name Role Phone Name, Jadiel MCGARRY Primary Care Provider [phone] Reason for Visit * Reason Onset Date Comments FYI 04/07/2023 Encounter Details Date Type Department Care Team ([facility] st Contact Info) Description 04/07/[address] [facility] MEDICINE [address] [place], [place] [phone] Name, MD Jadiel [address] [place] [address] FY Social History Tobacco Use Types Packs/Day [...] from pt wanting to let pcp know mechanical engineering draftsperson sent pt to ER for a blood transfusion and tomorrow the mechanical engineering draftsperson wants to see her urgently for the results. If any questions please contact [phone]. documented in this encounter Plan of Treatment Not on file documented as of this encounter Visit Diagnoses Not on filedocumented in this encounter Additional Health Concerns Assessment Noted Time PHQ-9 Depression Total Score: 10 023 2:07 PM EDT documented as of this encounter Care Teams Boat Garnisher Relationship Specialty Start Date End Date Name, MD Jadiel [address] [place] [address] PCP - General Family Medicine 11/19/15 documented as of this encounter
--- OUTSIDE RECORDS SUMMARY | 2024-07-07 09:59 | XMS_ITS | Encounter Summary ---
Author Organization [employer] Address [address] [place] [address] 7 [place] [address] Care Team Providers Care Rehanger Name Role Phone Name, Jadiel MCGARRY Primary Care Provider [phone] Reason for Visit * Reason Onset Date Comments Chart Prep 07/05/2024 Encounter Details Date Type Department Care Team ([facility] st Contact Info) Description 07/05/2024 Telephone [facility] MED[facility]INE [address] [place] [address] Betty Jaquez MA Chart Prep Social History Tobacco Use Types Packs/Day Years [...] encounter Miscellaneous Notes * Telephone Encounter - Betty Jaquez MA - 07/05/2024 9:12 AM EDT Chart Prep Labs: done Images: done Referrals: complete Vaccines due: Covid, Flu, and Hep B Screenings: colonoscopy Overdue care gaps: SBIRT, PHQ-9, and Tobacco, Disability documented in this encounter Plan of Treatment Not on file documented as of this encounter Visit Diagnoses Not on filedocumented in this encounter Additional Health Concerns Assessment Noted Time PHQ-9 Depression Total Score: 0 06/18/19 24 9:55 AM EDT documented as of this encounter Care Teams Rehanger Relationship Specialty Start Date End Date Name, MD Jadiel [address] [place] [address] PCP - General Family Medicine 11/19/15 documented as of this encounter
--- OUTSIDE RECORDS SUMMARY | 2024-07-07 09:59 | XMS_ITS | Encounter Summary ---
Author Organization [employer] Address [address] [place] [address] [place] [address] Care Team Providers Care Aircraft Launch And Recovery Technician Name Role Phone Jadiel Blake MD Primary Care Provider [phone] Reason for Referral * Consultation (Routine) - Authorized Specialty Diagnoses / Procedures Referred By Rhea sy Referred To Contact Nutrition Diagnoses Obesity (BMI 30.0-34.9) Jadiel Blake MD [address] [place] [address] Phone: tel: fax: Referral ID Status Reason Start Date Expiration Date Visits Requested Visits Authorized [id number] Authorized Consult and Treat 07/07/2024 07/07/2025 1 1 Reason for Visit * Reason Comments Follow-up Encounter Details Date Type Department Care Team ([facility] st Contact Info) Description 07/07/2024 9:00 AM EDT Office Visit [facility] MED[facility]INE [address] [place] [address] [phone] Jadiel Blake MD [address] [place] [address] [phone] Obesity (BMI 30.0-34.9) (Primary Dx); Screening for tuberculosis Social History Tobacco Use Types Packs/Day Years [...] AM EDT documented as of this encounter Last Filed Vital Signs Vital Sign Reading Time Taken Comments Blood Pressure 134/84 07/07/2024 9:06 AM EDT Pulse 75 07/07/2024 9:06 AM EDT Temperature 36.6 ??C (97.8 ??F) 07/07/2024 9:06 AM ED T Respiratory Rate 14 07/07/2024 9:06 AM EDT Oxygen Saturation 98% 07/07/2024 9:06 AM EDT Inhaled Oxygen Concentration - - Weight 91 kg (200 lb 9.6 oz) 07/07/2024 9:06 AM EDT Height 165.1 cm (5' 5 ) 07/07/2024 9:06 AM EDT Body Mass Index 33.38 07/07/2024 9:06 AM EDT documented in this encounter Progress Notes * Jadiel Blake MD - 07/07/2024 9:00 AM EDT Subjective Patient ID: Kim David is a 44 y.o. female who presents for Follow-up. Patient comes for a follow-up visit. She feels well. The patient is obese with a BMI of 33.38. She describes significant difficulties losing weight with diet alone. She has been trying to cut carbohydrates and increase protein intake. She recently joined a gym. She is interested in medication to help her lose weight. She denies any palpitations, her BP is normal, she denies significant anxiety, she does not have history of substance abuse. Review of Systems Constitutional: Negative for chills and fever. HENT: Negative for sore throat. Respiratory: Negative for cough, shortness of breath and wheezing. Cardiovascular: Negative for chest pain, palpitations and leg swelling. Gastrointestinal: Negative for abdominal pain. Visit Vitals BP 134/84 (BP Location: Left arm, Patient Position: Sitting, BP Cuff Size: Large adult) Pulse 75 Temp 97.8 ??F (36.6 ??C) (Temporal) Resp 14 Ht 5' 5 (1.651 m) Wt 200 lb 9.6 oz (91 kg) SpO2 98% BMI 33.38 kg/m?? Smoking Status Never BSA 2.04 m?? Objective Physical Exam Constitutional: Appearance: Normal appearance. Cardiovascular: Rate and Rhythm: Normal rate and regular rhythm. Heart sounds: No murmur heard. No gallop. Pulmonary: Effort: Pulmonary effort is normal. No respiratory distress. Breath sounds: Normal breath sounds. No wheezing. Musculoskeletal: Right lower leg: No edema. Left lower leg: No edema. Neurological: Mental Status: She is alert. Assessment/Plan Diagnoses and all orders for this visit: Obesity (BMI 30.0-34.9) Comments: I encouraged the patient to exercise regularly I agree with cutting down carbohydrates She is encouraged to increase protein intake, avoid sweets and soda, avoid processed foods. I will refer the patient to kitchen and bath designer. I recommended trial of phentermine. Follow-up in 3 months. I also ordered T spot for TB screening at her request since this is a requirement for her job. Orders: - phentermine 15 MG capsule; Take 1 capsule (15 mg) by mouth before breakfast. - Referral to Nutrition Therapy; Future Screening for tuberculosis - T-SPOT??.TB; Future documented in this encounter Plan of Treatment Scheduled Orders Name Type Priority Associated Diagnoses Orde r Schedule T-SPOT??.TB Lab Routine Screening for tuberculosis Expected: 07/07/2024 (Approximate), Expires: 07/07/2025 Scheduled Referrals Name Type Priority Associated Diagnoses Orde r Schedule Referral to Nutrition Therapy Outpatient Referral Routine Obesity (BMI 30.0-34.9) Expected: 07/07/2024 (Approximate), Expires: 07/07/2025 documented as of this encounter Visit Diagnoses Diagnosis Obesity (BMI 30.0-34.9)- Primary Screening for tuberculosis Screening examination for pulmonary tuberculosis documented in this encounter Additional Health Concerns Assessment Noted Time PHQ-9 Depression Total Score: 0 06/18/19 24 9:55 AM EDT documented as of this encounter Care Teams Aircraft Launch And Recovery Technician Relationship Specialty Start Date End Date NameJadiel MD [address] [place] [address] PCP - General Family Medicine 11/19/15 documented as of this encounter
--- OUTSIDE RECORDS SUMMARY | 2024-07-07 09:59 | XMS_ITS | Encounter Summary ---
Author Organization [email or web address] Address [address] [facility] 7t [place] [address] Care Team Providers Care Internal Controls Analyst Name Role Phone Name, Jadiel MCGARRY Primary Care Provider [phone] Encounter Details Date Type Department Care Team ([facility] st Contact Info) Description 05/06/2024 Orders Only [facility]S [address] [place] [address] ProviderJacqueline MD Social History Tobacco Use Types [...] as of this encounter Plan of Treatment Not on file documented as of this encounter Procedures Procedure Name Priority Date/Time Associated Diagnosis Comments BI MAMMOGRAM SCREENING TOMOSYNTHESIS BILATERAL Routine 05/25/2024 2:52 PM EDT HM PAP/HPV Routine 04/08/2023 5:48 PM EST documented in this encounter Results * BI Mammogram Screening Tomosynthesis Bilateral (05/25/2024 2:52 PM EDT) Anatomical Region Laterality Modality Breast Bilateral Mammography 05/25/2024 2:52 PM EDT Narrative 06/02/2024 4:55 PM EDT ? [facility] [place] ? [address] ?[place] [address] ?[phone] ? Mammography Report ? Signed ? Patient: Adalid DavidYuridia boggsda ?MR#: MM ?? [id number] ? : 1980 ?Acct:[id number] ? Age/Sex: 44 / F ?ADM Date: 03/20/25 ? Loc: HO.MAMMO ? Attending Dr: Beto Benavidez MD ? Ordering Physician: Beto Benavidez MD ?Results: 1Negativ ?? e ? Date of Service: 05/25/24 ?Follow Up: 1 Year From Orig ?? inal Mammogram ? Procedure(s): MM tomosynthesis screening BI ?? Accession Number(s): [id number] ? cc: Jadiel Blake MD; Beto Benavidez MD ? EXAMINATION: ?? MM SCREENING DIGITAL BREAST TOMOSYNTHESIS, BILATERAL ? CLINICAL INFORMATION: ? Screening. Asymptomatic. ? COMPARISON: ?? Mammography: Comparison is made with available priors ? TECHNIQUE: ?? Digital breast mammography with tomosynthesis is performed in both the ?? craniocaudal and mediolateral oblique views along with computer-aided ?? detection (CAD). ? FINDINGS: ?? The breasts are heterogeneously [...] due date for their next mammogram. ? Electronically signed by: ??Yamila Tillmantru DO ??06/02/2024 04:51 PM EDT ?? RP ? Dictated By: ?Yamila Woods DO ? Signed By: ?<Electronically signed by Yamila Woods, DO in OV> ? 06/02/24 1651 ? DD/ 1452 ? TD/TT: 05/25/24 1514 ? Tar Leveler: ? Procedure Note Dustin, Image - 06/02/2024 [facility] [address] [place] [address] Mammography Report Signed Patient: Dwight Cook#: MM [id number] : 1980Acct:[id number] Age/Sex: 44 / FADM Date: 05/25/24 Loc: HO.MAMMO Attending Dr: Beto Benavidez MD Ordering Physician: Beto Benavidez MDResults: 1Negativ e Date of Service: 05/25/24Follow Up: 1 Year From Orig inal Mammogram Procedure(s): MM tomosynthesis screening BI Accession Number(s): [id number] cc: Lou,Jadiel MCGARRY; Beto Benavidez MD EXAMINATION: MM SCREENING DIGITAL BREAST TOMOSYNTHESIS, BILATERAL CLINICAL INFORMATION: Screening. Asymptomatic. COMPARISON: Mammography: Comparison is made with available priors TECHNIQUE: Digital breast mammography with tomosynthesis is performed in both the craniocaudal and mediolateral oblique views along with computer-aided detection (CAD). FINDINGS: The breasts are heterogeneously dense, which [...] target due date for their next mammogram. Electronically signed by: Yamila Woods DO 06/02/2024 04:51 PM EDT Dictated By: Yamila Woods DO Signed By: <Electronically signed by Yamila Woods DO in OV> 06/02/24 1651 DD/ 1452 TD/TT: 05/25/24 1514 Tar Leveler: [facility] External Provider IMG BI PROCEDURES Final Result * HM PAP/HPV (04/08/2023 5:48 PM EST) us Historical Provider HEALTH MAINTENANCE Final Result documented in this encounter Visit Diagnoses Not on filedocumented in this encounter Additional Health Concerns Assessment Noted Time PHQ-9 Depression Total Score: 0 06/18/19 24 9:55 AM EDT documented as of this encounter Care Teams Internal Controls Analyst Relationship Specialty Start Date End Date Name, MD Jadiel [address] [place] [phone] PCP - General Family Medicine 11/19/15 documented as of this encounter
--- OUTSIDE RECORDS SUMMARY | 2024-07-07 09:59 | XMS_ITS | Clinical Summary ---
Author Organization [facility] Address [address] [place] [address] Care Team Providers Care Injection Molding Engineer Name Role Phone Unavailable Primary Care Provider [...] Vaccine (2023-2 5 season) 2023 Influenza Vaccine (Season Ended) 2024 HIB Vaccines Aged Out No longer eligi [...] age to complete this topic Meningococcal B Vaccine Aged Out No l onger eligible based on patient's age to complete [...]
--- OUTSIDE RECORDS SUMMARY | 2024-07-07 09:59 | XMS_ITS | Clinical Summary ---
Author Organization [employer] Address [address] [place] [address] 7t [place] [address] Care Team Providers Care Pollution Control Chemist Name Role Phone Name, Jadiel MCGARRY Primary Care Provider [phone] Allergies Active Allergy Reactions Criticality Noted Date [...] to flight 2 tablet 09/28/19 24 Active phentermine 15 MG capsuleIndicati ons:Obesity (BMI 30.0-34.9) Take 1 capsule (15 mg) by mouth before breakfast. 30 capsule 07/08/19 25 025 Active Active Problems Problem Noted Date Diagnosed [...] result if abnormal to refer back to [facility] if needed Iron deficiency anemia 11/19/2015 Assessment & Plan (10/27/2022 2:24 PM EDT): Noted here last hb was 9.5 in 06/2022 from hx of menorrhagia Pt not tolerated before oral iron and was following w discount clerk for IV iron but lost care -repeat CBC today -pt wants to hold on oral iron px -referred back to discount clerk today -advised to f w her [facility] Irregular periods 11/19/2015 Left lower quadrant pain 11/19/2015 Resolved Problems Problem Noted Date Diagnosed Date Resolved Date 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 Encounters Date Type Department Care Team Description 07/07/2024 9:00 AM EDT Office Visit [facility] MEDICINE [address] [place] [phone] Name, MD Jadiel Obesity (BMI 30.0-34.9) (Primary Dx); Screening for tuberculosis 07/07/2024 Travel 07/05/2024 Telephone [facility] MEDICINE [address] [place], [place] [phone] Betty Jaquez MA Chart Prep 06/15/2024 Telephone [facility] MEDICINE [address] [place] [address] Gela Nuñez MA chartprep 05/19/2024 Population Health Risk Score Community [facility] () Department [address] [place] [phone] Provider, Population Health Generic 05/06/2024 Orders Only [facility] PEDS [address] [place], [place] [phone] Provider, MD Jacqueline from Last 3 Months [...] your housing situation today? I have alonzo agiular 02/09/[address] you li [...] Mass Index 33.38 07/07/2024 9:06 AM EDT Plan of Treatment Health Maintenance Due Date [...] 02/08/2025 02/09/2024 Tobacco Screening 02/21/2025 02/22/2024 Mammogram 05/25/2026 05/25/2024, 03/0 08/2023, 03/14/2021, Additional history exists DTaP/Tdap/Td Vaccines (2 - [...] TOMOSYNTHESIS BILATERAL Routine 05/25/2024 2:52 PM EDT HEPATITIS C AB W/REFL TO HCV RNA, QN, PCR Routine 02/22/2024 2:35 PM EST Need for hepatitis C screening test HIV 1/2 ANTIGEN/ANTIBODY, FOURTH GENERATION W/RFL Routine 02/22/2024 2:35 PM EST Screening for HIV (human immunodeficiency virus) HM PAP/HPV Routine 04/08/2023 5:48 PM EST LIPID PANEL, STANDARD Routine 11/13/2021 11:46 AM EDT COLONOSCOPY Routine 03/30/2019 [facility] HISTORICAL HPV E6/E7 RFLX MELI 16 18/45 Routine 11/09/2018 10:43 AM EDT from Last 3 Months or Most Recently Relevant to Health Maintenance Results * BI Mammogram Screening Tomosynthesis Bilateral (05/25/2024 2:52 PM EDT) Anatomical Region Laterality Modality Breast Bilateral Mammography 05/25/2024 2:52 PM EDT Narrative 06/02/2024 4:55 PM EDT ? [facility] [place] ? [address] ?[place] [address] ?[phone] ? Mammography Report ? Signed ? Patient: Kim Cook ?MR#: MM ?? [id number] ? : 1980 ?Acct:[id number] ? Age/Sex: 44 / F ?ADM Date: /20/25 ? Loc: HO.MAMMO ? Attending Dr: Beto Benavidez MD ? Ordering Physician: Beto Benavidez MD ?Results: 1Negativ ?? e ? Date of Service: /20/25 ?Follow Up: 1 Year From Orig ?? inal Mammogram ? Procedure(s): MM tomosynthesis screening BI ?? Accession Number(s): [id number] ? cc: Lou,Jadiel MCGARRY; Beto Benavidez MD ? EXAMINATION: ?? MM [...] next mammogram. ? Electronically signed by: ??Yamila Woods DO ??06/02/2024 04:51 PM EDT ?? RP ? Dictated By: ?Yamila Woods DO ? Signed By: ?<Electronically signed by Yamila Woods DO in OV> ? 06/02/24 1651 ? DD/ 1452 ? TD/TT: 05/25/24 1514 ? Hay Sorter: ? Procedure Note Dustin, Image - 06/02/2024 [facility] [address] [place] [address] [place] [address] Mammography Report Signed Patient: Dwight Cook#: MM [id number] : 1980Acct:[id number] Age/Sex: 44 / FADM Date: 05/25/24 Loc: HO.MAMMO Attending Dr: Beto Benavidez MD Ordering Physician: Beto Benavidez MDResults: 1Negativ e Date of Service: 05/25/24Follow Up: 1 Year From Orig inal Mammogram Procedure(s): MM tomosynthesis screening BI Accession Number(s): [id number] cc: Name,Jadiel MCGARRY; Beto Benavidez MD EXAMINATION: MM SCREENING [...] 06/02/24 1651 DD/ 1452 TD/TT: 05/25/24 1514 Hay Sorter: [facility] External Provider IMG BI PROCEDURES Final Result * Hepatitis C Antibody with Reflex to HCV, RNA, Quantitative, Real-Time PCR (02/22/2024 2:35 PM EST) Hepatitis C Antibody Nonreactive Nonreactive [facility] Comment:Antibodies to HCV no t detected; does not exclude early acuteHCV infection. Blood Venous blood specimen / Unknown 02/22/2024 2:35 PM EST 02/22/2024 4:05 PM EST Jadiel Blake MD LAB BLOOD ORDERABLES Final Resul t Performing Organization Address [facility] Co de Phone Number [facility] [address] [place] [phone] * HIV-1/2 Antigen and Antibodies, Fourth Generation, with Reflexes (02/22/2024 2:35 PM EST) Pathologist [facility] HIV AB/AG Nonreactive Nonreactive [facility] Comment:HIV-1 p24 Ag and/or HIV-1/HIV-2 Ab not detected.A test result that is nonreactive does not exclude thepossibility of exposure to or infection with HIV-1 and/orHIV-2. Nonreactive results in this assay for individualswith prior exposure to HIV-1 and/or HIV-2 may be due toantigen and antibody levels that are below the limit ofdetection of this assay.The [employer] HIV Ag/Ab Combo assay result andsupplemental assay results should be interpreted inconjunction with the patient's clinical presentation,history and other laboratory results. If the results areinconsistent with clinical evidence, additional testing issuggested to confirm the result. Blood Venous blood specimen / Unknown 02/22/2024 2:35 PM EST 02/22/2024 4:05 PM EST us Jadiel Blake MD LAB BLOOD ORDERABLES Final Resul t Performing Organization Address City/[facility]/ZIP Co de Phone Number [facility] [address] [place] [phone] * HM PAP/HPV (04/08/2023 5:48 PM EST) [facility] Provider HEALTH MAINTENANCE Final Result * (ABNORMAL) [...] ?? Cristobal ROWELL et al. ANGEL. 2013;310(19): 1410-8521 ?? (http://education.Branch/faq/SHP554) Non-HDL Cholesterol 155(H) <130 mg/dL (calc) [facility] Comment: For patients with diabetes plus 1 major ASCVD risk ?? factor, treating to a non-HDL-C goal of <100 mg/dL ?? (LDL-C of <70 mg/dL) is considered a therapeutic ?? option. Triglycerides 138 <150 mg/dL [facility] 11/13/2021 11:4 6 AM EDT us Jadiel Blake MD LAB BLOOD ORDERABLES Final Resul t [facility] [address] * (ABNORMAL) Hm Colonoscopy (03/30/2019) Colonoscopy Abnormal(A ) Normal us Jadiel Blake MD HEALTH MAINTENANCE Final Result * HPV E6/E7 RFLX MELI 16 18/45 (11/09/2018 10:43 AM EDT) ADDITIONAL TESTING Not indicated () [facility] Comment: Test Performed by Bill Wagner, [employer] [facility], [address] [place], [place] Mehrdad Soto M.D., Ph.D., Director of Laboratories , [place] [id number] HPV 16 RNA Test not performed [facility] HPV 18/45 RNA Test not performed [facility] HPV mRNA E6/E7 Not Detected NOT DETECTED [facility] Comment: This test was performed using the APTIMA(R) HPV Assay ([employer] This assay detects E6/E7 viral messenger RNA (mRNA) from 14 high-risk HPV types (16,18,31,33,35,39,45,51, 52,56,58,59,66,68). For additional information please refer to: http://education.Bandwagon/faq/JUX413l8 (This link is being provided for informational/ educational purposes only.) The analytical performance characteristics of this assay have been determined by [employer] [place], [place]. The modifications have not been cleared or approved by the FDA. This assay has been validated pursuant to the CLIA regulations and is used for clinical purposes. Please note: ??Effective 11/18/2015, HPV testing will be performed using [employer]'s APTIMA test which targets mRNA. Detecting mRNA instead of DNA, as in older methods, offers significant improvements in specificity. 11/09/2018 10:4 3 AM EDT us Historical Provider MD HISTORICAL/NON ORDERABLE LABS Final Result [facility] [address] from Last 3 Months or Most Recently Relevant to Health Maintenance Insurance [facility] C3 HSN PARTIAL * Guarantor: Kim Cook I Account Type Relation to Patient Date of Phone Billing Address Personal/Family Self [address] [phone] Care Teams Pollution Control Chemist Relationship Specialty Start Date End Date Name, MD Jadiel [address] [place] [address] PCP - General Family Medicine 11/19/15
--- OUTSIDE RECORDS SUMMARY | 2024-07-07 09:59 | XMS_ITS | Encounter Summary ---
Author Organization [employer] Address [address] [place] [address] 7 [place] [address] Care Team Providers Care Environmental Field Team Member Name Role Phone Name, Jadiel MCGARRY Primary Care Provider [phone] Reason for Visit * Reason Onset Date Comments Returning Call Back 07/15/2022 Encounter Details Date Type Department Care Team (Late st Contact Info) Description 07/15/2022 Telephone [facility] MEDICINE [address] [place], [place] [phone] Name, MD Jadiel [address] [place] [address] Returning Call Back Social History Tobacco Use [...] called pt. * Telephone Encounter - Mirna Nunez - 07/15/2022 3:09 PM EDT Tc from patient returning call back, states she has 5 missed calls. Narrow Gauge Brakeman didn't see any notes. documented in this encounter Plan of Treatment Not on file documented as of this encounter Visit Diagnoses Not on filedocumented in this encounter Additional Health Concerns Assessment Noted Time PHQ-9 Depression Total Score: 023 2:07 PM EDT documented as of this encounter Care Teams Environmental Field Team Member Relationship Specialty Start Date End Date Name, MD Jadiel [address] [place] [address] PCP - General Family Medicine 11/19/15 documented as of this encounter
--- OUTSIDE RECORDS SUMMARY | 2024-07-07 09:59 | XMS_ITS | Encounter Summary ---
Author Organization [employer] Address [address] [facility] 7t [place] [address] Care Team Providers Care Pier Hand Name Role Phone Name, Jadiel MCGARRY Primary Care Provider [phone] Encounter Details Date Type Department Care Team (Latest Contact Info) Description 07/07/2024 Travel Social History Tobacco Use Types Packs/Day Years [...] documented as of this encounter Care Teams Pier Hand Relationship Specialty Start Date End Date Name, MD Jadiel [address] [place] [address] PCP - General Family Medicine 11/19/15 documented as of this encounter
[2024-07-10 01:08] LABS: TS Negative Control Passed; TS Panel A 0; TS Panel B 0; TS Positive Control Passed; TSpotTB Negative (Negative)
== END 2024-07-07 09:24 | disposition home or self-care (01) ==
LOC: HO.HHCL 09:23
PROVIDERS: Visit Provider Internal Medicine Geriatric Medicine
DX: Z11.1 Encounter for screening for respiratory tuberculosis (principal)
CPT/HCPCS: 36415; 86481

== ENCOUNTER 2025-02-15 12:06 | Emergency (ER) | payer MEDICAID, SELFPAY ==
--- NOTE | ~2025-02-15 | CT_ITS ---
CLINICAL HISTORY: LLQ Pain CT abdomen and pelvis with contrast Comparison: None provided Findings: Lung bases are clear. No acute bony abnormalities. Liver and spleen within normal limits. Pancreas and adrenal glands unremarkable. Gallbladder is within normal limits. No significant focal renal abnormalities. No renal stones or hydronephrosis. Abdominal aorta is normal in caliber. No free fluid or adenopathy in the pelvis. No diverticulitis. Appendix unremarkable. Enlarged lobular uterus with fibroids. No adnexal abnormality. Impression: No acute process This document has been electronically signed by: Ge Herrera MD on 02/15/2025 20:55:53
[2025-02-15 13:01] VITALS: BP 131/79; PULSE 74; RESP 18; TEMP 36.6; O2SAT 100; BMI 32.0
--- NOTE | 2025-02-15 13:01 | ED.NAVMDI ---
HPI - Nausea/Vomiting/Diarrhea General Chief complaint: Abdominal Pain Stated complaint: Stomach Pain Time Seen by Provider: 02/15/25 19:25 History of Present Illness ED Provider: Adriana Gibson NP HPI Narrative: 45-year-old female patient history of a thickened endometrium, abnormal uterine bleeding, uterine myoma, iron deficiency anemia presents to the ED with her for evaluation reporting nausea without vomiting, diarrhea as well as mid upper abdominal pain and left lower quadrant abdominal pain ongoing for 5 days. Patient reports that no matter what she eats, she mainly has diarrhea. She feels very nauseated, but has not vomited. Denies any fever, chills. No chest pain or pressure, palpitations. No shortness of breath. No urinary complaints including dysuria, hematuria, urgency or frequency. Denies any black or tarry stools, bright red blood per rectum. Related Data Previous Rx's ?Medication ?Instructions ?Recorded ibuprofen 800 mg tablet 800 mg PO Q8H PRN pain #20 tabs 06/24/20 Allergies Allergy/AdvReac Type Severity Reaction Status Date / Time varicella virus vaccine live Allergy Unknown ITCHING,FABIAN Verified 02/15/25 13:04 (VARICELLA VIRUS VACCINE SEA,HEADACH LIVE) E Review of Systems Review of Systems: ROS is otherwise negative unless mentioned in HPI. [facility] Past Medical History Medical History Nonintractable migraine (~09/21/16) Irregular menstrual bleeding (~11/19/15) Iron deficiency anemia (~11/19/15) Menometrorrhagia (~05/18/16) Irregular menstruation, unspecified (~05/18/16) Depression (~05/27/17) Chronic fatigue (~11/19/15) Cyst of left ovary (~11/19/15) Anxiety Asthma Surgical History H/O tubal ligation Family History Family History Mother Colon cancer Colonic polyp Paternal Aunt Breast cancer Maternal Uncle Prostate CA Social History Social History Household Members: Spouse, Significant Other and Family Housing: House Patient Tobacco Use Status: Never used Tobacco Advance Directives: No Advance Directives Information Provided: No service: No Current occupational status: employed Physical Exam Exam: Exam: Nursing notes and vital signs reviewed. Constitutional: Well-appearing, NAD. Alert. Oriented X3. Eyes: Pupils equal, round and reactive to light. ENT: Pharynx normal. Neck: Normal inspection. Neck supple. CVS: Normal heart rate and rhythm. Pulses normal. Respiratory: No respiratory distress. Breath sounds normal. Abdomen: Soft, tender to LLQ. Skin: Skin warm and dry. Normal skin color. Extremities: No lower extremity edema. Neuro: Oriented X 3. No motor deficit. Vital Signs: Vital Signs: Last Vital Signs Temp 97.7 F 02/15/25 22:19 Pulse 67 02/15/25 22:19 Resp 18 02/15/25 22:19 BP 145/73 H 02/15/25 22:19 Pulse Ox 100 02/15/25 22:19 O2 Del Method Room Air 02/15/25 22:19 BMI result Body Mass Index 32.0 Course Course Course Narrative: This is an RME: Additional HPI, ROS, PE not included below will be deferred to primary provider. RME assessment and note performed by: Deepthi Doan PA-C This is a 45 year old female who presents to the ER with a complaint of nausea, vomiting, diarrhea x 4 days. Abdomen is soft with tenderness palpation in the epigastrium and left lower quadrant. Hx of endometrial ablation otherwise no other abd surgeries Plan: Labs, UA, further ER eval needed Medications Administered Discontinued Medications Generic Name Dose Route Start Last Admin Trade Name Freq PRN Reason Stop Dose Admin Sodium Chloride 1,000 mls @ 999 mls/hr 02/15/25 19:48 02/15/25 22:01 Ns IV 02/15/25 20:48 Infused .Q1H1M ONE Infusion Iohexol 85 ml 02/15/25 20:07 02/15/25 20:08 Iohexol 350 Mg/Ml 100 Ml Infus..Btl IV 02/15/25 20:08 85 ml ONCE ONE Administration Ketorolac Tromethamine 15 mg 02/15/25 19:48 02/15/25 20:12 Ketorolac Tromethamine 15 Mg/Ml Vial IVPUSH 02/15/25 19:49 15 mg ONCE ONE Administration Ondansetron HCl 4 mg 02/15/25 19:48 02/15/25 20:12 Ondansetron Hcl 4 Mg/2 Ml Vial IVPUSH 02/15/25 19:49 4 mg ONCE ONE Administration Medical Decision Making Medical Decision Making [facility] Narrative: 7:49 PM 02/15/2025 (Adriana Gibson NP): paraprofessional interpreter service was utilized during this visit. Upon my assessment, she appears well. There is mild discomfort to palpation of the left lower quadrant of the abdomen, concerning for underlying diverticulitis. Urinalysis here is negative. She does have elevations of the LFTs, with no elevated lipase level. Denies that pain is worse after a meal. Possibly diverticulitis, acute cholecystitis, pancreatitis. Low clinical suspicion for cholangitis or choledocholithiasis given bilirubin is flat, less likely obstructive pathology. We will proceed with CT imaging of the abdomen and pelvis, administer antiemetic, pain control we will bolus and reassess. It is possible this is related to gastritis, gastroenteritis and viral illness. 11:27 PM: The CT scan shows no acute abdominal pathology. Upon my reassessment she reports significant improvement. She is eating and drinking normally in the ED. I do recommend if symptoms persist she follows up outpatient with Gastroenterology. I also recommended that she have repeat lab work done outpatient given the elevated LFTs. She expressed understanding with this plan of care. Likely acute gastroenteritis. Provided return precautions to the ED. Differential Diagnosis Differential Diagnoses: The differential diagnosis associated with the presentation includes Gastroenteritis, gastritis, pancreatitis, cholecystitis, cholangitis Admission/Observation Consideration of admission/observation: Escalation of care including admission/observation considered Lab Data [facility] Lab Attestation statement: I reviewed the patient's lab results. (Overall reassuring, elevated LFTs. Negative serology. Negative UA.) 02/15/25 13:18 02/15/25 13:18 Labs: Lab Results 02/15/25 Range/Units 13:18 WBC 9.0 (4.8-10.8) X10*3/uL RBC 4.85 (4.20-5.50) X10*6/uL Hgb 13.9 (12.0-16.0) g/dl Hct 40.7 (37.0-47.0) % MCV 83.9 (80.0-98.0) fL MCH 28.7 (27.0-33.0) pg MCHC 34.2 (31.0-35.0) g/dl RDW 12.7 (11.0-16.0) % Plt Count 239 (160-400) X10*3/uL MPV 10.6 (9.4-12.3) fL Immature Gran % (Auto) 0.2 (0.0-0.4) % Neut % (Auto) 71.3 (45-73) % Lymph % (Auto) 19.4 L (20-40) % [place] % (Auto) 7.7 (2-11) % Eos % (Auto) 1.0 (0-4) % Baso % (Auto) 0.4 (0-2) % Lymph # (Auto) 1.7 (1.2-4.9) X10*3/uL [place] # (Auto) 0.7 (0.1-1.2) X10*3/uL Eos # (Auto) 0.1 (0.0-0.4) X10*3/uL Baso # (Auto) 0.0 (0.0-0.2) X10*3/uL Abs Immat Gran (auto) 0.02 (0.00-0.03) X10*3/uL Absolute Neuts (auto) 6.4 (2.0-8.3) x10*3/uL Absolute Nucleated RBC 0.000 (0.0-0.012) X10*3/uL Nucleated RBC % (auto) 0.0 (0.0-0.2) /100WBC Sodium 140 (135-145) mmol/L Potassium 4.1 D (3.3-5.1) mmol/L Chloride 110 H (96-108) mmol/L Carbon Dioxide 23 (22-29) mmol/L Anion Gap 11 L (12-20) BUN 12 (9-16) mg/dL Creatinine 0.67 (0.5-1.4) mg/dL Estim Creat Clear Calc 113.1 Estimated GFR > 60 Random Glucose 92 (60-115) mg/dL Calcium 9.4 (8.4-10.2) mg/dL Magnesium 2.2 (1.6-2.6) mg/dL Total Bilirubin 0.5 (0.0-1.0) mg/dL Direct Bilirubin 0.2 (0.0-0.5) mg/dL AST 53 H (5-31) U/L ALT 76 H (0-31) U/L Alkaline Phosphatase 69 (39-117) U/L Troponin I High Sens < 2.7 (<3.5-17.0) ng/L Total Protein 8.3 H (6.5-8.0) g/dL Albumin 4.8 (3.5-5.0) g/dL Lipase 17 (8-78) U/L Urine Color Yellow Urine Appearance Clear Urine pH 5.5 (5.0-9.0) Ur Specific [place] 1.015 (1.005-1.025) Urine Protein Negative (Neg-Trace) mg/dL Urine Glucose (UA) Negative (Negative) mg/dL Urine Ketones Negative (Negative) mg/dL Urine Blood Negative (Negative) Urine Nitrite Negative (Negative) Ur Leukocyte Esterase Negative (Negative) Influenza Type A (PCR) NEGATIVE (Negative) Influenza Type B (PCR) NEGATIVE (Negative) RSV RNA Qual (PCR) NEGATIVE (Negative) SARS-CoV-2 RNA (RT-PCR) NEGATIVE (Negative) Independent Interpretation I performed an independent interpretation of an: EKG Interpretation: Rate: 71 Rhythm: NSR [place]: 75/16/30 Normal P waves. Normal HO. Normal QRS complex. ST T wave : no dep, elev qTC: 460 prior studies: similar The study has been interpreted contemporaneously by me. Radiology Impression Discussion of test interpretation with radiology: I have reviewed the radiologist's reading. Radiologist Impression: CT Abdomen/Pelvis Impression: No acute process Independent Historian Clinical information obtained from an independent historian. History obtained from or confirmed by: Spouse External Record Review External record reviewed: Office record and Outpatient record Chronic Conditions Patient?s care impacted by: Other (Iron deficiency anemia) Social Determinants Patient?s care significantly limited by Social Determinants of Health including: Problems related to primary support group and Other Social Determinant of Health (Language barrier) Discharge Plan Discharge Clinical Impression: Nonspecific abdominal pain Patient Disposition: Home, Self-Care Instructions: Abdominal Pain (ED) Additional Instructions: This was discussed, ureteral panel is negative for COVID, flu, RSV. The urine sample showed no signs of infection. Your lab work was overall reassuring, but your liver function tests were mildly elevated at 53, and 76. Please have these rechecked outpatient. Otherwise, your workup today was overall reassuring, including the CT scan of your abdomen and pelvis. Please follow up with your primary care provider within 1 week. With any worsening complaints at any time, return back to the ED for reassessment. I have listed a college physics instructor below for your convenience. Prescriptions: No Action ibuprofen 800 mg tablet 800 mg PO Q8H PRN (Reason: pain) Qty: 20 0RF Referrals: Name,MD Jadiel [Primary Care Provider, Internal Medicine] [facility] – [place], [place] [facility] [Provider Group, Gastroenterology] Print Language: [place]
--- NOTE | 2025-02-15 13:07 | ECG_ITS ---
Test Reason : epigastric pain Blood Pressure : */* mmHG Vent. Rate : 71 BPM Atrial Rate : 71 BPM P-R Int : 148 ms QRS Dur : 88 ms QT Int : 424 ms P-R-T Axes : 75 16 30 degrees QTcB Int : 460 ms Normal sinus rhythm Normal ECG When compared with ECG of 05-Jul-2022 20:23, No significant change was found Referred By: Deepthi Doan Electronically Signed By: MAGUI MCKAY MD
[2025-02-15 13:25] LABS: Hematocrit 40.7 % (37.0-47.0); Hemoglobin 13.9 g/dl (12.0-16.0); Imm Gran Abs Auto 0.02 X10*3/uL (0.00-0.03); Imm Gran Pct Auto 0.2 % (0.0-0.4); Lymphocytes Absolute Auto 1.7 X10*3/uL (1.2-4.9); MANUAL DIFF FLAG NO; Mean Corpuscular HGB Conc 34.2 g/dl (31.0-35.0); Mean Corpuscular Hemoglobin 28.7 pg (27.0-33.0); Mean Corpuscular Volume 83.9 fL (80.0-98.0); NRBC Abs Auto 0.000 X10*3/uL (0.0-0.012); NRBC Pct Auto 0.0 /100WBC (0.0-0.2); Platelet Count 239 X10*3/uL (160-400); Red Blood Count 4.85 X10*6/uL (4.20-5.50); White Blood Count 9.0 X10*3/uL (4.8-10.8)
[2025-02-15 13:26] LABS: Appearance Urine Clear; Glucose Urine UA Negative (Negative); PH 5.5 (5.0-9.0); Specific Gravity - Urine 1.015 (1.005-1.025)
[2025-02-15 13:39] LABS: Alanine Aminotransferase 76 U/L (0-31); Albumin Level 4.8 g/dL (3.5-5.0); Alkaline Phosphatase 69 U/L (39-117); Anion Gap 11 (12-20); Aspartate Amino Transferase 53 U/L (5-31); Blood Urea Nitrogen 12 mg/dL (9-16); Calcium 9.4 mg/dL (8.4-10.2); Carbon Dioxide 23 mmol/L (22-29); Chloride 110 mmol/L (96-108); Creatinine Clr Calc Pharmacy 113.1; Estimated Glomerular Filt Rate > 60; Lipase 17 U/L (8-78); Magnesium 2.2 mg/dL (1.6-2.6); Potassium 4.1 mmol/L (3.3-5.1); Sodium 140 mmol/L (135-145); Total Protein 8.3 g/dL (6.5-8.0)
[2025-02-15 13:46] LABS: Troponin-I High Sensitivity < 2.7 ng/L (<3.5-17.0)
[2025-02-15 14:13] LABS: Resp Syncy Virus RNA Qual PCR NEGATIVE (Negative); SARS COV2 PCR INHOUSE NEGATIVE (Negative)
[2025-02-15 20:08] VITALS: BP 155/79; PULSE 78; RESP 20; O2SAT 99
[2025-02-15] MEDS: iohexoL 350 MG/ML 100 ML INFUS..BTL 85 ML IV (20:08)
[2025-02-15 22:19] VITALS: BP 145/73; PULSE 67; RESP 18; TEMP 36.5; O2SAT 100
[2025-02-15 23:52] VITALS: BP 145/73; PULSE 67; RESP 18; TEMP 36.5; O2SAT 100
== END 2025-02-15 23:52 | disposition home or self-care (01) ==
PROVIDERS: Physician Assistant Medical; Emergency Provider Emergency Medicine; PCP Internal Medicine Geriatric Medicine
DX: R11.2 Nausea with vomiting, unspecified (principal); R10.23 Pelvic and perineal pain bilateral; R79.89 Other specified abnormal findings of blood chemistry; Z03.818 Encounter for observation for suspected exposure to other biological agents ruled out; Z79.899 Other long term (current) drug therapy
CPT/HCPCS: 36415; 74177; 80048; 80076; 81003; 83690; 83735; 84484; 85025; 87637; 93005; 96361; 96374; 96375; 99284; 99285; J1885; J2405; Q9967

== ENCOUNTER → 2025-02-15 13:07 | Outpatient (BNV) | payer MEDICAID, SELFPAY | PROVIDERS: PCP Internal Medicine Geriatric Medicine; Visit Provider Internal Medicine Cardiovascular Disease | DX: R10.13 Epigastric pain (principal) | CPT/HCPCS: 93010 ==

== ENCOUNTER → 2025-02-15 19:48 | Outpatient (BNV) | payer MEDICAID, SELFPAY | PROVIDERS: PCP Internal Medicine Geriatric Medicine; Visit Provider Radiology Diagnostic Radiology | DX: R10.32 Left lower quadrant pain (principal) | CPT/HCPCS: 74177 ==